=== PATIENT | male | born 1960 | race Caucasian/White ===

== ENCOUNTER 2017-03-27 00:27 | Inpatient (IN) | payer OTHER ==
[~2017-03-27] VITALS: Ht 177.8 cm; Wt 91.6 kg
[2017-03-27] VITALS (12 sets, daily range): BP systolic 115–151; BP diastolic 55–108
[~2017-03-27 00:27] MED LIST: HYDR-385 PO
[2017-03-27] MEDS ORDERED: METOCLOPRAMIDE 10 MG/2 ML SDV ONE (09:03)
[2017-03-27] MEDS ORDERED: ONDANSETRON 4 MG/2 ML VIAL ONE (09:03)
[2017-03-27] MEDS ORDERED: LIDOCAINE MPF 1% 5 ML VIAL ONE (09:03)
[2017-03-27] MEDS ORDERED: PROPOFOL EMUL(*) 10MG/ML 20 ML 20 ML ONE (09:03)
[2017-03-27] MEDS ORDERED: DEXAMETHASONE SOD PHOS 10MG/ML ONE (09:04)
[2017-03-27] MEDS ORDERED: fentaNYL CITR 250 MCG/5 ML AMP ONE (09:10)
[2017-03-27] MEDS ORDERED: ceFAZolin(*) 2GM/D5W 50ML 50 ML IVPB ONE (09:25)
[2017-03-27] MEDS ORDERED: MIDAZOLAM 2 MG/2 ML VIAL IVP ONE (09:25)
[2017-03-27] MEDS ORDERED: NORMOSOL R SOLN(*) 1000 ML BAG 1,000 ML IV PRN (09:25)
[2017-03-27] MEDS ORDERED: FAMOTIDINE 20 MG TAB PO ONE (09:25)
[2017-03-27] MEDS ORDERED: LIDOCAINE/SOD BICARB 8.4% SYR ID ONE (09:25)
[2017-03-27] MEDS ORDERED: LIDO/EPI 1% MDV 1:100,000 20ML INFIL ONE (11:01)
[2017-03-27] MEDS ORDERED: BACITRACIN OINT 15 GM TUBE TP ONE ×2 (11:01→14:05)
[2017-03-27] MEDS ORDERED: LABETALOL HCL 100 MG/20ML VIAL ONE (11:30)
[2017-03-27] MEDS ORDERED: ROCURONIUM BROM 10 MG/ML 10 ML ONE (11:30)
[2017-03-27] MEDS ORDERED: fentaNYL CITR 100 MCG/2 ML AMP ONE ×3 (13:08→15:34)
[2017-03-27] MEDS ORDERED: SUGAMMADEX SOD 200 MG/2 ML SDV ONE (13:29)
[2017-03-27] MEDS ORDERED: LR(*) 1000 ML BAG 1,000 ML IV PRN ×2 (13:58→20:02)
--- NOTE | 2017-03-27 13:58 | Post Operative Note ---
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 direct laryngoscopy with biopsy of left tongue base 2. tonsillectomy 3. selective neck dissection levels II-IV Complications: none Fluids Estimated Blood Loss: 100 ml YARA NICKERSON JR, MD Mar 27, 2017 13:58
[2017-03-27] MEDS ORDERED: ONDANSETRON 4 MG ODT TABDP SL PRN (14:00)
[2017-03-27] MEDS ORDERED: IBUP200C74 PO (16:02)
[2017-03-27] MEDS: MORPHINE 2 MG/ML SYR IVP PRN ×3 (16:31→21:53)
[2017-03-27] MEDS ORDERED: ceFAZolin(*) 1 GM VIAL 1 GM in NS(*) 0.9% 100 ML ADDVANT BAG 100 ML IVPB SCH (17:00)
[2017-03-27] MEDS: ceFAZolin 1 GM VIAL IVP SCH (19:49)
[2017-03-27] MEDS: BACITRACIN OINT 0.9 GM PKT TP SCH (19:49)
[2017-03-27] MEDS: NICOTINE 7 MG/24 HR PATCH TD SCH (20:05)
[2017-03-28 00:04] VITALS: BP 127/77
[2017-03-28] MEDS: MORPHINE 2 MG/ML SYR IVP PRN ×2 (00:06→03:23)
[2017-03-28 03:10] VITALS: BP 115/73
[2017-03-28] MEDS: ceFAZolin 1 GM VIAL IVP SCH ×3 (03:35→20:14)
[2017-03-28 08:07] VITALS: BP 114/74
--- NOTE | 2017-03-28 08:13 | ENT Progress Note ---
Subjective Progress Notes Subjective POD #1 s/p DL, tonsillectomy and left SND. Janene soft diet. Pain controlled. Complains of nasal congestion. 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 Monitor JEREMIAS output. Abx while drain in place. Anticipate discharge home tomorrow. Exam Sepsis Risk: No Definite Risk YARA NICKERSON JR, MD Mar 28, 2017 08:13
[2017-03-28] MEDS: BACITRACIN OINT 0.9 GM PKT TP SCH ×2 (08:17→20:15)
[2017-03-28] MEDS: NICOTINE 7 MG/24 HR PATCH TD SCH (08:18)
[2017-03-28 08:52] VITALS: Ht 177.8 cm; Wt 91.6 kg
[2017-03-28] MEDS: OXYMETAZOLINE SPRAY 15 ML BTL ENA SCH ×2 (10:15→20:15)
[2017-03-28 15:16] VITALS: BP 118/71
[2017-03-28 19:20] VITALS: BP 113/70
--- NOTE | 2017-03-28 21:35 | OPERATIVE REPORT 1 ---
EVENT DATE: March 27, 2017 SURGEON: Tiburcio Marion MD ANESTHESIOLOGIST: Joey Mcnamara MD ANESTHESIA: General endotracheal anesthesia. TECHNICAL SERVICE REPRESENTATIVE: Sachi Barnes PREOPERATIVE DIAGNOSIS Squamous cell carcinoma metastatic to the neck with unknown primary. POSTOPERATIVE DIAGNOSIS Squamous cell carcinoma metastatic to the neck with unknown primary. PROCEDURES PERFORMED 1. Direct laryngoscopy with biopsy of the left base of tongue. 2. Tonsillectomy. 3. Left selective neck dissection levels 2 through 4. INDICATIONS Please refer to the preoperative note. DESCRIPTION OF PROCEDURE The patient was positively identified in the preoperative area. He was accompanied there by his . Risks were again explained, but not limited to bleeding, infection, injury to surrounding nerves and/or vessels including, but limited to the marginal mandibular nerve, accessory nerve, hypoglossal nerve, phrenic nerve, vagus nerve, internal jugular vein, carotid artery, thoracic duct , and those associated with anesthesia. He acknowledged understanding of those risks. He was then brought back to the operative suite and laid supine on the operative table, and anesthesia was administered. Once asleep, the patient was positioned and then prepped and draped in the usual sterile fashion. The patient's maxillary dentures were removed. A gauze was placed over his gingiva. I proceeded with direct laryngoscopy. A Dedo direct laryngoscope was carefully introduced into the patient's oral cavity. This was clear. The patient's base of tongue was examined. This was notable for a small ulcerative lesion on the left base of tongue measuring approximately 5 mm. Mva Reactor Operator Head biopsies were obtained and sent for permanent pathology. The vallecula was clear. The endolarynx was clear. The bilateral piriform sinuses were clear. The patient was then positioned for the tonsillectomy. A McIvor mouth gag was placed in the patient's oral cavity. The red rubber catheter was placed through the right nostril and utilized to suspend the soft palate. The patient was noted to have 2+ tonsils bilaterally. The right tonsil was grasped with a curved Allis forceps and carefully dissected from the lateral pharyngeal wall with Bovie electrocautery. In a similar fashion, the contralateral tonsil was removed. Both tonsils were sent separately for permanent pathology. Hemostasis was obtained with suction and Bovie electrocautery. The patient was then repositioned for the neck dissection. A favorable neck crease was noted in the approximate midline of the neck. A 10 cm incision was planned and marked. Approximately 5 mL of 1% lidocaine with epinephrine was infiltrated. The patient was then prepped and draped in the usual sterile fashion. The aforementioned incision was then made with a 15 blade. I then dissected the underlying subcutaneous tissue with Bovie electrocautery. The platysma muscle was identified and divided with Bovie electrocautery. Subplatysmal flaps were elevated superiorly and inferiorly. I began the neck dissection at the anterior margin of the sternocleidomastoid muscle. The fascia was incised. The muscle was then rotated posteriorly. I continued my dissection superficially and posteriorly in this plane. I then dissected deeply to the floor of the neck using the cervical rootlets as the landmark. I then carefully came across the inferior-most aspect of the neck dissection, clamping and tying to prevent a possible chyle leak. I then rotated the lymph node packet both superiorly and medially. The omohyoid muscle was divided. Superiorly, the accessory nerve was identified and preserved. Superiorly, the inferior margin of the mandible and the posterior belly of the digastric muscle were used for the extent of the dissection. I then freed the lymph node packet anteriorly at the strap musculature. The lymph node packet was carefully freed from the internal jugular vein. The carotid artery and the vagus nerve were identified and preserved. The lymph node packet was then divided into levels 2 , 3, and 4, and sent separately for permanent pathology. The wound was then copiously irrigated with normal saline solution. A Valsalva maneuver was performed. Hemostasis was assumed. A Caesar-Craig drain was placed and secured to the neck with a suture. The platysma was then reapproximated with an interrupted chromic stitch. The skin was then closed in a multilayer fashion. The patient was then turned to Anesthesia for emergence. Estimated blood loss was 100 mL. There were no complications. [facility]
[2017-03-28] MEDS ORDERED: DEXAMETHASONE SOD PHOS 10MG/ML IVP ONE (22:50)
[2017-03-29 00:57] VITALS: BP 114/64
[2017-03-29] MEDS: ceFAZolin 1 GM VIAL IVP SCH ×2 (04:40→11:23)
[2017-03-29 04:53] VITALS: BP 125/81
[2017-03-29 07:28] VITALS: BP 129/66
[2017-03-29 07:36] VITALS: BP 120/69
[2017-03-29] MEDS: OXYMETAZOLINE SPRAY 15 ML BTL ENA SCH (08:09)
[2017-03-29] MEDS: NICOTINE 7 MG/24 HR PATCH TD SCH (08:09)
[2017-03-29] MEDS: BACITRACIN OINT 0.9 GM PKT TP SCH (08:09)
[2017-03-29] MEDS ORDERED: DEXAMETHASONE SOD PHOS 10MG/ML IVP ONE (08:10)
--- NOTE | 2017-03-29 08:28 | ENT Progress Note ---
Subjective Progress Notes Subjective POD #2 s/p tonsillectomy, DL, left SND. Patient complained of throat swelling last night and given IV decadron. Feeling improved this morning. Janene soft diet. 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 Patient is anxious about discharge due to this. Will give another dose of decadron this morning and observe. Anticipate home this afternoon if comfortable. Exam Sepsis Risk: No Definite Risk YARA NICKERSON JR, MD Mar 29, 2017 08:28
[2017-03-29] MEDS ORDERED: CEFU500T10 PO (11:24)
[2017-03-29] MEDS ORDERED: PER PO (11:24)
--- NOTE | 2017-03-29 11:26 | Hospitalist Depart ---
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 Patient tolerating regular diet. Pain controlled. Departure Weight (Pounds): 202 Weight (Ounces): 10.0 Condition: Improved Discharge: Home Discharge Instructions Home Meds Active Scripts Cefuroxime Axetil (CEFUROXIME) 500 Mg Tablet, 500 MG PO BID for 10 Days, #20 TAB Prov:YARA NICKERSON JR, MD 03/29/17 Reported Medications Ibuprofen (IBUPROFEN) 200 Mg Tablet, 2 TAB PO Q6H, TAB 04/05/17 Discontinued Reported Medications Ibuprofen (ADVIL) 200 Mg Capsule, 1 CAP PO TID Y for PAIN, CAPSULE 03/27/17 Hydrocodone Bit/Acetaminophen (HYDROCODON-ACETAMINOPHEN 5-325) 1 Each Tablet, 1 EACH PO PRN Y for PAIN, TAB 03/20/17 Discontinued Scripts Oxycodone Hcl/Acetaminophen (PERCOCET 5-325 MG TABLET) 1 Each Tablet, 1-2 TAB PO Q4-6H Y for PAIN, #10 TAB 0 Refills Prov:VIGNESH SUÁREZ DNP, BUTTON BREAKER-BC 03/31/17 Oxycodone/Acetaminophen (OXYCODONE/ACETAMINOPHEN 5MG/325 MG) 5 Mg/325 Mg Tab, 1- 2 TAB PO Q4H Y for MILD TO MODERATE PAIN for 7 Days, #10 TAB 0 Refills Prov:VIGNESH SUÁREZ DNP, BUTTON BREAKER-BC 03/31/17 Diet: Regular Activity: No Heavy Lifting, No Exertion Special Instructions: Record JEREMIAS output daily. Will call with follow up in 2 days for drain removal. Venous Thromboembolism Antithrombotics Is Pt On Any Antithrombotics?: No YARA NICKERSON JR, MD Mar 29, 2017 11:26
--- NOTE | 2017-03-29 13:13 | Medical Nutrition Therapy ---
Nutrition Anthropometrics Height (Inches): 70.00 Height (Calculated Centimeters: [phone] Weight (Pounds): 202 Weight (Calculated Kilograms): 91.909 BMI Calculated: 28.98 Arthur Nutrition Score: Adequate Arthur Nutrition Risk Score: 17 Dietary Referral Nutrition Risk Factors: Nutrition Risk Comment: Physical Findings Physical Appearance: Overweight BMI 25-29 Skin Appearance Skin Appearance: Edema Edema Location Modifier: Edema Location: Type of Edema: Degree of Edema: Gastrointestinal Symptoms GI Symtoms: Tube Present: Bowel Sounds: Recent Bowel Pattern: Stool Characteristics: Nutritional Diagnosis Nutritional Risk Acuity 2: Head/Neck/GI Cancer Past Medical History: 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 Nutritional Acuity: 2-Moderate Nutrition Diagnosis: Swallowing Difficulties Nutrition Etiology: Physiological Causes Nutrition Problem/Etiology/Sym: Swallowing difficulties r/t tongue biopsy and tonsillectomy AEB soft diet and pt reports of throat swelling. Energy Requirement: 2350 ([address]ome [address] Jeor) Protein Requirement: 92 (1 g/kg) Fluid Requirement: 2200 (25 ml/kg) Diet Type: Diet as Tolerated SADE/REG Nutrition Intervention: Cont diet as ordered, Encourage intake Diet Comment To RSA: PLEASE OFFER SOFT FOODS PLEASE OFFER MILKSHAKES OR SMOOTHIES WITH PROTEIN POWDER Nutrition Monitoring & Eval Nutrition Follow-Up: Good Intake RD Patient Assessment Time: [address] Assessment Type: RD Assessment Patient Nutrition Acuity: 2-Moderate Follow Up Date: Apr 01, 2017 Nutritional Comment: 03/28 Pt admitted for biopsy of left tongue and tonsillectomy. No labs available. Pt has squamous cell carcinoma metastatic to the head and neck. Pt had a 100% of a milkshake with dinner. Will continue to encourage intake and monitor. 03/29 Pt continues on SADE with 100% average intakes. Pt is consuming soft foods such as smoothies with protein powder due to throat swelling post tonsillectomy/tongue biopy. No new labs available. Pt may be discharging this afternoon. Will continue to offer soft foods and monitor intakes. TOBY RUSHING Mar 29, 2017 09:40
[2017-03-31] MEDS ORDERED: PER PO ×2 (15:00→15:02)
[2017-03-31] MEDS ORDERED: OXYC-865 PO (15:03)
[2017-04-05] MEDS ORDERED: IBUP-56 PO (12:22)
== END 2017-03-29 12:40 | disposition home or self-care (01) | DRG 824 ==
LOC: OR 00:27 → MED 15:50
PROVIDERS: ADMIT Otolaryngology; ATTEND Otolaryngology
PROC: 0CBM8ZX Excision of Pharynx, Via Natural or Artificial Opening Endoscopic, Diagnostic (ICD-10-PCS; principal; 2017-03-27 11:24)
PROC: 07B20ZX Excision of Left Neck Lymphatic, Open Approach, Diagnostic (ICD-10-PCS; 2017-03-27 11:24)
PROC: 0CTPXZZ Resection of Tonsils, External Approach (ICD-10-PCS; 2017-03-27 11:24)
DX: C77.0 Secondary and unspecified malignant neoplasm of lymph nodes of head, face and neck (principal); C79.89 Secondary malignant neoplasm of other specified sites; C80.1 Malignant (primary) neoplasm, unspecified; F17.210 Nicotine dependence, cigarettes, uncomplicated
CPT/HCPCS: 88304; 88305; 88344; C9399; J0690; J1100; J2001; J2250; J2270; J2405; J2704; J2765; J3010; J3490; J7120

== ENCOUNTER → 2017-04-13 | Outpatient (CLI) | payer OTHER ==
[2017-03-28 08:52] VITALS: BMI 29.0
[~2017-04-13] MED LIST changes: +CEFU500T10 PO; +DEX4 PO; +IBUP-56 PO; +IBUP200C74 PO; +LIDOCAINE MPF 1% 5 ML VIAL ONE; +LORA-1455 PO; +NS(*) 0.9% 10 ML VIAL 0 ML ONE; +OMEP-218 PO; +ONDA8TAB94 PO; +OXYC-865 PO; +PER PO
== END ==
LOC: RAD 06:59
PROVIDERS: ATTEND Internal Medicine Medical Oncology
DX: C79.89 Secondary malignant neoplasm of other specified sites (principal); C80.1 Malignant (primary) neoplasm, unspecified
CPT/HCPCS: 36569; 76937; C1751; J2001

== ENCOUNTER → 2017-04-24 | Outpatient (CLI) | payer OTHER ==
[2017-03-28 08:52] VITALS: BMI 29.0
[~2017-04-24] MED LIST changes: -LIDOCAINE MPF 1% 5 ML VIAL ONE; -NS(*) 0.9% 10 ML VIAL 0 ML ONE
== END ==
LOC: AUD 13:00
PROVIDERS: ATTEND Nurse Practitioner Family
DX: C79.89 Secondary malignant neoplasm of other specified sites (principal)
CPT/HCPCS: 92552

== ENCOUNTER 2017-06-08 09:24 | Outpatient (RCR) | payer OTHER ==
[2017-03-28 08:52] VITALS: Ht 176.5 cm; Wt 82.5 kg
--- NOTE | 2017-04-05 00:08 | CONSULTATION ---
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 Patient presented with a left neck lymph node which was excised on March 02, 2017. Lymph node measured 4 x 3 cm and demonstrated extracapsular extension stage left tonsil T1 N2a M0, right tonsil T1 N0 M0. HISTORY This is a pleasant 56-year-old gentleman who was referred to me by Dr. Tiburcio Marion for radiation therapy recommendations related to a recently diagnosed head and neck malignancy. The patient will also consult with Dr. Vaughan within the next seven days for Medical Oncology opinion. Patient was seen accompanied by spouse, and records reviewed this morning. The patient states that he had a small nodule in his left neck at the end of January. Within 30 days this seemed to double in size. The patient was seen by primary care and then referred to Dr. Marion for further assessment. Patient underwent initial imaging for a left neck mass with a CT of the neck on February 23, 2017. I reviewed that study with the patient and his spouse. He appeared to have a large mass in the left mid neck measuring 3.2 x 3.4 x 4.7 cm. There was suspicious 8 mm x 13 mm lymph node posteriorly. There appeared to be areas of central necrosis. The lymph node posteriorly was felt to be probably benign, however, the mass anteriorly had several differentials listed by the radiologist. The patient was taken to the OR for an excision of the deep left neck cervical mass by Dr. Tiburcio Marion on March 02, 2017. The mass was submitted to pathology, who confirmed that this was a poorly differentiated squamous cell carcinoma. Extracapsular extension was noted. The submitted specimen measured 4.0 x 3.0 x 2.0 cm. Patient had additional radiographic imaging which included a PET CT scan in [place] on March 21, 2017. There was SUV uptake at the biopsy site which was 2.7 to 3.3. There was moderate activity in the tonsils bilaterally with an SUV max of 6.2 on the right side and 5.5 on the left side. No signs of pulmonary metastatic disease. The patient was taken back to the OR for additional surgery by Dr. Tiburcio Marion on March 27, 2017. Bilateral tonsillectomy was performed and completion level II, level III and level IV neck dissection. Left base of tongue was biopsied which was benign. The tonsils appeared normal grossly, however, microscopically contained invasive poorly differentiated squamous cell carcinoma with areas of necrosis. Ten lymph nodes were examined from the left neck further dissection, which were all negative for carcinoma. Patient is seen approximately eight days remote from the surgery and is scheduled to have his sutures removed tomorrow. Patient states that he was not having any throat pain prior to the surgery or any swallowing difficulties. He denies any referred pain to the jaw or left ear. No recent significant weight loss and energy levels remained fairly normal. The patient does have a smoking history of one half to one pack per day for 35 years. He recently stopped smoking a week ago. 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 MEDICATIONS Cefuroxime 500 mg b.i.d. ALLERGIES PENICILLIN. PAST MEDICAL HISTORY Notable for polymyalgia rheumatica remotely, which cleared with a trial of prednisone and has not recurred since prednisone was discontinued. This was directed out of [place]. PAST SURGICAL HISTORY 1. As listed above. 2. Also had L5 surgery in March of 1989, [place]. 3. Right carpal tunnel surgery, November 04, 2016. 4. Left carpal tunnel surgery, February 16, 2017 in [place]. 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 He is and accompanied by his spouse today, and they have one son aged 23 who lives at home. FAMILY HISTORY Negative for carcinoma. There are history of a sister with rheumatoid arthritis , another sister with juvenile diabetes. COMPREHENSIVE REVIEW OF SYSTEMS Notable for numbness which persists in the left hand related to his carpal tunnel disease. Right hand numbness resolved after three months following surgery. Denies any cardiovascular or respiratory difficulties. No GI complaints. No recent infections. PHYSICAL EXAMINATION GENERAL: A pleasant 56-year-old male of medium build. VITAL SIGNS: Weight 198, height 5 feet 10 inches. BP 127/89, pulse 85, respirations 16, O2 sat 93% on room air. Temperature 99.1. HEENT: Intraoral inspection reveals recent surgical changes over the posterior oropharynx. The tongue was inspected and was unremarkable. The patient wears upper dentures. He has a fixed in place bridge in the lower portion of the jaw which is attached to anchors. NECK: Examination reveals no palpable lymphadenopathy in the right neck. Left neck exam reveals a transverse surgical incision with sutures in place which is healing nicely. There is a second incision 3-4 cm above this from the February surgery which is well healed. No palpable lymphadenopathy. No signs of infection. LUNGS: Clear bilaterally. HEART: Sounds regular. No audible murmur. NEUROLOGIC: Exam is grossly intact. IMPRESSION This is a 56-year-old gentleman who presents with a rapidly enlarging left neck lymph node which contained poorly differentiated squamous cell carcinoma. The patient had mild activity in the tonsils bilaterally on the PET CT scan, although the gross inspection was normal and he was asymptomatic. Patient appropriately underwent bilateral tonsillectomy and was found to have poorly differentiated squamous cell carcinoma in the left and right tonsil, which is fairly unusual concurrently. Additional lymph nodes were removed from level II through level IV which were all negative for carcinoma. Natural history of squamous cell carcinoma of the tonsil was reviewed with the patient and his spouse. These tumors tend to reoccur locally and have a high propensity for lymph node metastasis. Patients are also at risk for pulmonary metastatic disease at a later point. My recommendation at this time would be to proceed with postoperative radiation therapy to start in approximately three weeks. We would proceed with CT simulation later this week to acquire targeting information for treatment planning computer. I will also import the images from the CT scan prior to surgery, and finally request the PET/CT disk from [place], which can also be utilized for radiation targeting and field definition. I will need to target the posterior oropharynx as well as the draining lymphatics of the tonsil in the right neck as well as the left neck. Every attempt will be utilized to minimize radiation to the right posterior parotid with an IMRT treatment technique, and lower the dose as well to the submandibular gland on the right side. On the left side we will need to full radiation therapy doses to the left upper to mid neck with a goal of achieving target doses approximately 66-70 Gy. Progressive field reductions will be performed after 50 Gy at five weeks. Patient will be seen by Dr. Vaughan shortly to discuss systemic chemotherapy options with this patient. Treatments will potentially start on April 17, if the patient has adequate healing at that juncture. I reviewed his radiographic studies with him today, the new pathology report information from last week, and also the potential acute late side effects from treatment. Signed consent has been obtained for treatment going forward. Patient will have sutures removed from his left neck tomorrow at Dr. Marion's office. Appropriate literature was reviewed from up to date regarding squamous cell carcinomas of the oropharynx since he appears to have a high risk stage III carcinoma at diagnosis, presently favoring a combined modality program. Final decisions will be reached, however, after consultation with Dr. Vaughan for his expert opinion. [facility]
[2017-05-29 08:36] VITALS: BP 97/63
[2017-05-29 09:03] LABS: PLATELET COUNT, AUTOMATED 127 K/uL (150-450)
[~2017-06-08] VITALS: Ht 176.5 cm; Wt 82.5 kg
[~2017-06-08 09:24] MED LIST changes: +ALTEPLASE RECOMB 2 MG VIAL IVP PRN; +D5 1/2 NS(*) 1000 ML BAG 1,000 ML IV ONE; +DEXTROSE 5%(*) 100 ML BAG 100 ML IVPB PRN; +FLUC100T35 PO; +FLUC200T52 PO; +NS(*) 0.9% 100 ML BAG 100 ML IVPB PRN; +NS(*) 0.9% 1000 ML BAG 1,000 ML IV PRN; +NS(*) 0.9% 500 ML BAG 500 ML IV PRN; +WATER FOR INJ,STERILE 20 ML IVP PRN
[2017-06-15] MEDS ORDERED: ONDA-2 PO (12:00)
--- NOTE | 2017-06-21 10:43 | TOBIN CONSULT ---
EVENT DATE: June 20, 2017 DIAGNOSIS Squamous cell carcinoma of the right and left tonsil. Tumor is poorly differentiated. Patient presenting with large lymph node mass in the left neck , requiring excision on March 02, 2017. Status post surgical tonsillectomy bilaterally, revealing a poorly differentiated invasive of squamous cell carcinoma on March 27, 2017. Clinical stage I left tonsil T1 N2a M0, right tonsil T1 N0 M0. TREATMENT PLAN Postoperative external beam radiation therapy with IMRT with concurrent weekly cisplatin. TREATMENT DETAILS Radiation therapy started April 18, 2017. It completed June 08, 2017. DOSE AND TECHNIQUE The patient received a combined dose of 6660 cGy, 37 daily fractions. Treatment was delivered in three phases. Phase one covered the primary posterior oropharynx and regional lymph nodes bilaterally to 5040 cGy in 28 fractions. First boost covered the posterior oropharynx and left neck for an additional 1080 cGy in six fractions. Last boost covered the site of the lymph node resection, delivering another 540 cGy in three fractions at 180 cGy per fraction. The patient was able to complete a total of five weekly IV infusions of cisplatin on the direction of Dr. Vaughan. TOLERANCE As expected, the patient developed a [id number] mucositis reaction in the posterior oropharynx. This was medicated with a combination of Fentanyl patch and hydrocodone elixir effectively. The patient was hydrated in the Oncology Department for the last several weeks of his treatment course effectively. He was able to maintain a soft diet and was able to complete the course without a feeding tube. He was noted to have hematologic suppression, which was followed by Dr. Vaughan and myself and managed appropriately. DISPOSITION The patient should see significant resolution of the mucositis reaction within a period of three to six weeks. He will have follow-up blood work in two weeks , and be seen by Medical Oncology. I would like to see the patient at approximately week six to eight. The patient will monitored by multiple physicians going forward. I would tentatively request followup baseline PET/CT scan in 12-16 weeks to allow resolution of the acute treatment effects. Patient has done exceptionally well considering that he had to undergo treatment for bilateral squamous cell carcinoma of the tonsil. He presented with a fairly aggressive squamous cell carcinoma to the left neck and will need close surveillance going forward. I will refer him back to Dr. Marion to assist with the oncology surveillance in approximately eight to 12 weeks to allow resolution of acute treatment effects. The patient has a follow-up appointment with Dr. Vaughan in approximately three weeks as well. At his next clinical visit I will obtain a CBC, CMP and TSH. Patient was instructed to contact us if he needs to be seen sooner. I would expect the xerostomia to steadily improve over the next 12 months, and taste to return gradually over two to six months. Thank you for the initial referral. Hopefully the tri-modality therapy will be effective in preventing subsequent recurrence. ADAMS
== END 2017-07-02 ==
LOC: RAON 09:24
PROVIDERS: ATTEND Radiology Radiation Oncology
DX: Z51.0 Encounter for antineoplastic radiation therapy (principal); C09.8 Malignant neoplasm of overlapping sites of tonsil; C79.89 Secondary malignant neoplasm of other specified sites; F17.210 Nicotine dependence, cigarettes, uncomplicated
CPT/HCPCS: 36592; 77280; 77290; 77300; 77301; 77334; 77336; 77338; 77386; 85025; 99202; J7030; 82040; 82247; 82310; 82374; 82435; 82565; 82947; 84075; 84132; 84155; 84295; 84450; 84460; 84520

== ENCOUNTER 2017-07-07 09:59 | Outpatient (RCR) | payer OTHER ==
[2017-03-28 08:52] VITALS: Ht 176.5 cm; Wt 83.0 kg
[2017-04-12 12:36] VITALS: BP 138/85
--- NOTE | 2017-04-12 18:58 | ONCOLOGY CONSULTATION ---
EVENT DATE: April 12, 2017 REFERRING PROVIDER Avelino Adams MD REASON FOR CONSULTATION Tonsillar squamous cell carcinoma. CHIEF COMPLAINT Left neck numbness at site of incision. HISTORY OF PRESENT ILLNESS Chance is a very pleasant 56-year-old gentleman who is here with his today. He has been referred to my clinic by Dr. 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 To review , the patient had initially presented with a left neck mass in January, and per the record, it had doubled in size within a short period of time. He was seen by his primary care provider, and then he was referred to Dr. Marion in ENT. The patient underwent a CT scan of the neck on February 23. This revealed a partially cystic/necrotic mass in the left neck at the level of the hyoid bone, abutting the posterior surface of the left submandibular gland. The mass displaced the internal jugular vein and the internal/external carotid. The mass itself measured 3.2 x 3.4 x 4.7 cm. There were additional smaller lymph nodes elsewhere in the mid neck. The patient then underwent an excisional biopsy of the left neck mass on March 02. 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 He then went for a CT PET scan on March 21. This revealed evidence of his prior surgical biopsy, as well as warm activity along the surgical approach with a maximum SUV of 3.3. There is moderately high activity in the tonsils extending rostrally to the tongue base, and a tonsillar/ peritonsillar malignancy could not be excluded. There was a left pulmonary micronodule, but no evidence of distant glucose-avid metastatic disease. The patient returned to the operating room on March 27 where a bilateral tonsillectomy as well as completion level II, III, and IV neck dissection took place. Biopsies were taken of the left base of tongue, and these were benign. Both the left and right tonsils contained invasive poorly differentiated squamous cell carcinoma. The patient did quite well with his surgery. Today, he reports that he has no significant pain. He has not required any pain medication for the past few days. He does have some numbness and slight tightness around the incision. He reports no problem swallowing. He has had no mouth sores. He denies shortness of breath, chest pain, or cough. His appetite has otherwise been good, and his weight has been stable. He does have a smoking history, but he recently quit. Of note, his tumor is positive for HPV. REVIEW OF SYSTEMS Otherwise negative, and all systems are reviewed. MEDICATIONS Ibuprofen p.r.n. ALLERGIES PENICILLIN. PAST MEDICAL HISTORY Reported history of polymyalgia rheumatica which has not been apparent since an initial treatment with prednisone. PAST SURGICAL HISTORY 1. History of lumbar spine surgery, 1989. 2. History of right carpal tunnel surgery, November 04, 2016. 3. Left carpal tunnel surgery, February 16, 2017. SOCIAL HISTORY The patient is a former smoker, as above. There is no history of alcohol abuse or illicit drug use. 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 He is with one son. FAMILY HISTORY There is no known history of malignancy. VITAL SIGNS Temperature is 97.0, blood pressure 138/85, heart rate is 92, respirations 16, oxygen saturation is 92% on room air, weight is 91.0 kg. PHYSICAL EXAMINATION GENERAL: Patient is alert and oriented times three in no apparent distress sitting in the exam room chair. HEENT: Exam reveals anicteric sclerae. NECK: Exam reveals a well-healed incision over the left neck. NEUROLOGIC: Exam is grossly nonfocal and his gait is normal. EXTREMITIES: Exam reveals no edema, clubbing or cyanosis. There is no joint deformity. He does have old scars from carpal tunnel surgery. SKIN: Exam reveals no concerning rash or lesion. LABORATORY Studies are reviewed per the [facility] record. IMAGING AND PATHOLOGY Please see history of present illness. ASSESSMENT AND PLAN 1. 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 I had a good visit with Chance and his today. Symptomatically he is doing quite well. We spent time reviewing his oncologic history, which is noted above. He has met with Dr. Adams in Radiology Oncology, and much of the information that we covered today was somewhat of a review. We spent time discussing the nature of his squamous cell carcinoma, and the importance of the left neck lymph node metastasis in terms of staging and decision making for adjuvant therapy. I would certainly agree with Dr. Adams that postoperative radiation is indicated. We spent time today discussing the merits of the addition of weekly cisplatin to his planned radiation course. We discussed the synergistic effect of combined modality therapy. We spent time discussing cisplatin, the weekly schedule, and common risks and toxicities associated with it. The patient's performance status is excellent, and he recently quit smoking. He does have some preexisting numbness in the left hand related to carpal tunnel syndrome, but he has had bilateral carpal tunnel surgeries. He has occasional mild tinnitus, but this is not a persistent or worsening problem. His kidney function is excellent. We discussed the possibility of nausea, and the need for him to have antiemetic medications at home. I do understand that he is planning to begin radiation therapy next week. The patient is quite interested in receiving combined modality therapy, so we will put orders forth for him to receive cisplatin with his radiation. Given the HPV + nature of his SCC, we will likely move forward with weekly cisplatin at 40 mg/ m2, as opposed to high-dose cisplatin on Days 1, 22, and 43. I would like to discuss this further with Dr. Adams, however. We will work for this to begin as soon as possible so that his radiation therapy can start on time. He will be followed closely here in this clinic as he initiates his treatment. I have recommended that he have weekly Medical Oncology evaluation in addition to the busy schedule that he will be keeping with Radiation Oncology. 2. Smoking. The patient has stopped smoking, but we did discuss methods and strategies for him to continue to be able to avoid cigarettes. Indeed, most patients find it difficult if not impossible to smoke while undergoing chemoradiation. I do think it would be fine if he wants to consider replacement products such as patches as he moves forward with treatment. He understands the importance of never smoking again. Thank you very much, Dr. Adams, for allowing me to take part in the care of this delightful patient. Please do not hesitate to call with questions or concerns. We will get the patient scheduled for chemotherapy education as well as PICC line placement as soon as possible. I spent a total of 60 minutes of time face to face with the patient and his today. Fifty-five minutes of this time was spent in direct counseling and coordination of care. ADAMS
--- NOTE | 2017-04-13 17:03 | RADIOLOGY IMAGING REPORT ---
FACILITY: [facility] PATIENT NAME: Sybil Gilliam : 1960 MR: [id number] V: [id number] EXAM DATE: ORDERING PHYSICIAN: ROGER PATTERSON TECHNOLOGIST: Location: [facility] Patient: Sybil Gilliam : 1960 Visit/Account:[id number] Date of Sevice: 04/13/2017 Exam type: PICC LINE PLACEMENT, PICC LINE INSERTION History: Need for IV chemotherapy Comparison: None. Findings: Informed consent was obtained. The patient's left arm was prepped and draped in usual sterile fashio n. Local anesthesia was accomplished with 1% lidocaine. Under sonographic guidance and fluoroscopic guidance a 40 cm long trimmed 4 Bahraini single lumen power PICC was inserted via the patent left basi lic vein with the distal tip resting in superior vena cava. The PICC line was flushed with five mill ers of saline flush. Proximal portion PICC line was adhered to the patient's arm the sterile dressin g. The sonographic images were saved to PACS. The procedure was accomplished without apparent corti cation. The fluoroscopy dose area product was 94.81 micro-Kwong per meter squared IMPRESSION: 1. Successful placement of a 40 cm long trimmed 4 Bahraini single lumen power PICC inserted via the pa tent left basilic vein with the distal tip resting in superior vena cava Report Dictated By: Quita Ramsey MD at 04/13/2017 4:56 PM Report E-Signed By: Quita Ramsey MD at 04/13/2017 4:58 PM WSN:[email or web address]
--- NOTE | 2017-04-13 17:03 | RADIOLOGY IMAGING REPORT ---
FACILITY: [facility] [place] PATIENT NAME: Sybil Gilliam : 1960 MR: [id number] V: [id number] EXAM DATE: ORDERING PHYSICIAN: ROGER PATTERSON TECHNOLOGIST: Location: [facility] Patient: Sybil Gilliam : 1960 Visit/Account:[id number] Date of Sevice: 04/13/2017 Exam type: PICC LINE PLACEMENT, PICC LINE INSERTION History: Need for IV chemotherapy Comparison: None. Findings: Informed consent was obtained. The patient's left arm was prepped and draped in usual sterile fashio n. Local anesthesia was accomplished with 1% lidocaine. Under sonographic guidance and fluoroscopic guidance a 40 cm long trimmed 4 Estonian single lumen power PICC was inserted via the patent left basi lic vein with the distal tip resting in superior vena cava. The PICC line was flushed with five mill ers of saline flush. Proximal portion PICC line was adhered to the patient's arm the sterile dressin g. The sonographic images were saved to PACS. The procedure was accomplished without apparent corti cation. The fluoroscopy dose area product was 94.81 micro-Kwong per meter squared IMPRESSION: 1. Successful placement of a 40 cm long trimmed 4 Estonian single lumen power PICC inserted via the pa tent left basilic vein with the distal tip resting in superior vena cava Report Dictated By: Quita Ramsey MD at 04/13/2017 4:56 PM Report E-Signed By: Quita Ramsey MD at 04/13/2017 4:58 PM WSN:ABILIO
[2017-04-18 08:43] VITALS: BP 137/85
[2017-04-18] MEDS: NS(*) 0.9% 1000 ML BAG 1,000 ML IV PRN (08:54)
[2017-04-18] MEDS: NS(*) 0.9% 500 ML BAG 500 ML IV PRN (10:31)
[2017-04-18] MEDS: PALONOSETRON 0.25 MG/5 ML VIAL IVP PRN (10:31)
[2017-04-18] MEDS: DEXAMETHASONE SOD(*) 10MG/ML 10 MG in NS(*) 0.9% 50 ML BAG 50 ML IVPB PRN (10:31)
--- NOTE | 2017-04-18 10:39 | ONC Progress Note - NP.Halsey ---
Patient History Date of Service Apr 18, 2017 Reason For Visit/HPI Patient is seen in the clinic today with his for education prior to starting chemotherapy for his tonsillar squamous cell carcinoma. The education team to include psychologist social, physical therapy and myself reviewed education with patient today. Written material was given to patient and spouse for further review. Consent was signed. Radiation education was also completed today and consent was previously signed by the radiation oncologist. Patient reports that he has not had a flu vaccination or pneumonia vaccination at this time. He currently has a mild sore throat and reports that he has a few pain medications left at home but has not needed to use them recently. He is able to eat and drink almost all foods without difficulty at this time. No shortness of breath, cough or congestion, diarrhea or constipation. Patient has a PICC line in his left arm that was placed last and will have a dressing change completed today. He should've had a dressing change 24 hours post-insertion. 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 Patient presented with a left neck mass in January, and it doubled in size within a short period of time. He was seen by his primary care provider, and then he was referred to Dr. Marion in ENT. The patient underwent a CT scan of the neck on February 23. This revealed a partially cystic/necrotic mass in the left neck at the level of the hyoid bone, abutting the posterior surface of the left submandibular gland. The mass displaced the internal jugular vein and the internal/external carotid. The mass itself measured 3.2 x 3.4 x 4.7 cm. There were additional smaller lymph nodes elsewhere in the mid neck. The patient then underwent an excisional biopsy of the left neck mass on March 02. 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 He then went for a CT PET scan on March 21. This revealed evidence of his prior surgical biopsy, as well as warm activity along the surgical approach with a maximum SUV of 3.3. There is moderately high activity in the tonsils extending rostrally to the tongue base, and a tonsillar/peritonsillar malignancy could not be excluded. There was a left pulmonary micronodule, but no evidence of distant glucose-avid metastatic disease. The patient returned to the operating room on March 27 where a bilateral tonsillectomy as well as completion level II, III, and IV neck dissection took place. Biopsies were taken of the left base of tongue, and these were benign. Both the left and right tonsils contained invasive poorly differentiated squamous cell carcinoma. Of note, his tumor is positive for HPV. Patient will on 04/18/2017 and concurrent radiation therapy 7 weeks. Medical History Family History: FH: diabetes mellitus BROTHER OR SISTER FH: rheumatoid arthritis BROTHER OR SISTER Psychosocial History Social History The patient is a former smoker, he quit with the diagnosis. There is no history of alcohol abuse or illicit drug use. 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 He is with one son. Smoking History: Yes Smoking Status: Former Smoker Medications and Allergies Active Scripts Dexamethasone 4 Mg Tab (DEXAMETHASONE 4 MG TAB) 4 Mg Tab, 4 MG PO DAILY for 3 Days, #42 TAB take 8mgin the morning on days 2-4 post weekly chemotherapy Prov:[facility] ONC 04/18/17 Omeprazole Magnesium (PRILOSEC OTC) 20 Mg Tablet.dr, 1 TAB PO QDAY for Nausea, # 30 TAB take on days of dexamethasone, 1-4 weeekly with chemotherapy Prov:[facility], ONC 04/18/17 Lorazepam (ATIVAN) 0.5 Mg Tablet, 0.5 MG PO Q4-6H Y for nausea for 30 Days, #30 TAB 1 Refill Prov:[facility], ONC 04/18/17 Ondansetron (ZOFRAN ODT) 8 Mg Tab.rapdis, 8 MG PO Q8H, #30 TAB 2 Refills Prov:[facility], ONC 04/18/17 Reported Medications Ibuprofen (IBUPROFEN) 200 Mg Tablet, 2 TAB PO Q6H, TAB 04/05/17 Discontinued Scripts Cefuroxime Axetil (CEFUROXIME) 500 Mg Tablet, 500 MG PO BID for 10 Days, #20 TAB Prov:YARA MARION JR, MD 03/29/17 Allergies: Coded Allergies: Penicillins (Verified Allergy, Intermediate, itching, 03/27/17) Review of System/Physical Exam Review of Systems All Systems Reviewed/Normal: Yes, Except as Noted HEENT: Sore Throat Hematologic: Positive for Fatigue Musculoskeletal: Positive for Muscle Pain (neck and shoulder decreased ROM, left hand s/p carpul surgery) Neurologic: Numbness of Hands Physical Exam Vital Signs Temperature: 98.0 Pulse: 96 BP Systolic: 137 BP Diastolic: 85 Respiratory Rate: 16 O2 SAT: 90 O2 Delivery: Height (inches) 69.50 Weight lb: 202 Weight oz: 10.0 Weight Kg (Spenser): Pain: 2 ECOG Score: 0 General: Stable, Well Developed, Well Nourished, Not In Acute Distress Extremities: Other (PICC line in the left upper arm infusing normal saline via pump) Psychiatric: Mood appears normal, Affect appears normal, Other (passes with him today) Skin: Other Chemo Education Chemotherapy Education: Patient is seen today for education regarding chemotherapy with cisplatin and concurrent radiation therapy for his squamous cell carcinoma of the tonsils bilaterally The treatment schedule and associated appointments were discussed and reviewed. A print out will be given to the patient. The intent for treatment is attentive. Consent for treatment was completed prior to receiving treatment. Mechanism of action and associated side effects of cisplatin and premedications were discussed. The patient is at increased risk for infection related to bone marrow suppression with chemotherapy. Signs and symptoms of infection were reviewed with recommendation of calling the clinic if fever, chills or a temperature of 100.5 or greater is experienced. Regular monitoring of blood work will be completed. The patient is at increased risk of nausea and vomiting related to chemotherapy. Home antiemetics were reviewed with a schedule of when to take them. Script (s) for Ativan, Zofran, Prilosec and dexamethasone were reviewed in detail and sent to [facility]. Increased bowel movements or diarrhea may occur. The use of Imodium was reviewed and encouraged to have on hand. Dehydration from decreased intake, nausea or diarrhea could also occur. Side effects of dehydration were reviewed and hydration will be given as needed. Oral mouth sores and dry mouth side effect management was reviewed with patient today. Patient is encouraged to complete good oral hygiene, use aloe vera juice prior to radiation therapy, use baking soda salt water rinse frequently during the day, and use hard candy or sips of water frequently to prevent dry oral secretions. Patient will be monitored closely and as oral mucositis develops prescription medications will be completed. Review of oral candidiasis and symptoms to look for was also completed. Self-care strategies to minimize any symptoms from treatment were taught and written material was given for further review at home. The strategies included: dietary modifications for nausea, diarrhea, fatigue and/ or mouth sores, exercise and resting for fatigue, hydration for dehydration, and skin care for dry skin reactions. In addition, safety measures for IV chemotherapy to prevent teratogenic side effects to others was reviewed in detail to include good hand washing, double flushing, and what to do during sexual intercourse. Patient and spouse both verbalized understanding and will review the written material again in detail. Radiation side effects to include fatigue, skin management, skin reaction such as a moist desquamation in the treatment field, oral mucositis and sore throat were all reviewed as well. Written information regarding skin care using a heavy moisturizer cream and avoiding 2 hours prior to radiation therapy was recommended. Patient will be hydrated as needed for dehydration secondary to sore throat. Pain medications will be filled as needed to treat pain as it develops. A PEG tube placement was reviewed and could be completed if patient is unable to complete nutritional status. Diagnostic Studies Diagnostic Studies Laboratory Laboratory Tests 04/18/17 08:50 Laboratory Tests 04/18/17 08:50: White Blood Count 7.8, Hemoglobin 14.5, Hematocrit 41.4, Platelet Count 229, Neutrophils (%) (Auto) 65.6, Lymphocytes (%) (Auto) 24.1, Neutrophils # (Auto) 5.1, Lymphocytes # (Auto) 1.9, Sodium Level 139, Potassium Level 4.1, Chloride Level 105, Carbon Dioxide Level 24, Blood Urea Nitrogen 13, Creatinine 0.90, Glomerular Filtration Rate Calc > 60.0, Random Glucose 119, Calcium Level 8.9, Phosphorus Level 2.8, Magnesium Level 2.1, Total Bilirubin 0.7, Aspartate Amino Transf (AST/SGOT) 30, Alanine Aminotransferase (ALT/SGPT) 36, Alkaline Phosphatase 84, Total Protein 7.1, Albumin 3.9 Assessment and Plan Assessment & Plan 1. 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 Education completed today regarding concurrent cisplatin weekly with daily radiation therapy. Patient will start cycle 1 today. [facility] to include Zofran, Ativan, and dexamethasone. Patient will use aloe vera juice prior daily radiation therapy to help prevent oral mucositis. Consent was signed after reviewing side effects. Patient and spouse verbalized understanding of treatment. Patient has a PICC line which will be maintained. Patient was encouraged to scrap picker a sleeve from the [employer] for showering. Patient will follow weekly with CBC, CMP, magnesium and phosphorus level. TSH was added today for baseline. I personally spent a total of 45 minutes. Of that 40 minutes was counseling/ coordination of patient's care. See my note above for details. Copies to: YARA MARION JR, MD, NANCY J TISSUE SPECIALIST-BC, ONC Apr 18, 2017 10:39
[2017-04-18] MEDS: FOSAPREPITANT DIM 150 MG/5 ML 150 MG in NS(*) 0.9% 250 ML BAG 245 ML IVPB PRN (11:01)
[2017-04-18] MEDS: [UNRECOGNIZED DRUG - OTHER] IV PRN (12:53)
[2017-04-18] MEDS: MAGNESIUM SU IV PRN (12:53)
[2017-04-18] MEDS: KCL IV PRN (12:53)
[2017-04-18 14:59] VITALS: BP 137/85
[2017-04-25 08:27] VITALS: BP 145/80
[2017-04-25] MEDS: NS(*) 0.9% 1000 ML BAG 1,000 ML IV PRN (09:04)
[2017-04-25] MEDS: PALONOSETRON 0.25 MG/5 ML VIAL IVP PRN (09:05)
[2017-04-25] MEDS: DEXAMETHASONE SOD(*) 10MG/ML 10 MG in NS(*) 0.9% 50 ML BAG 50 ML IVPB PRN (09:06)
[2017-04-25] MEDS: FOSAPREPITANT DIM 150 MG/5 ML 150 MG in NS(*) 0.9% 250 ML BAG 245 ML IVPB PRN (09:52)
--- NOTE | 2017-04-25 09:57 | ONC Progress Note - NP.Halsey ---
Patient History Date of Service Apr 25, 2017 Reason For Visit/HPI Patient is seen in the clinic today with his for cycle 2 of weekly cisplatin. Patient is scheduled to receive 7 weekly doses. He is currently on concurrent radiation therapy for his tonsillar squamous cell carcinoma. Patient reports that he tolerated the 1st cycle without difficulty. He denied any nausea or vomiting, no bowel changes and no urinary changes. Patient is experiencing a loss of taste buds and tightness in the neck postradiation therapy. He is beginning to develop a mild skin reaction. He is currently using aloe vera juice 3 times a day for oral mucositis prevention and a heavy moisturizer twice a day over the skin in the treatment field. 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 Patient presented with a left neck mass in January, and it doubled in size within a short period of time. He was seen by his primary care provider, and then he was referred to Dr. Nickerson in ENT. The patient underwent a CT scan of the neck on February 23. This revealed a partially cystic/necrotic mass in the left neck at the level of the hyoid bone, abutting the posterior surface of the left submandibular gland. The mass displaced the internal jugular vein and the internal/external carotid. The mass itself measured 3.2 x 3.4 x 4.7 cm. There were additional smaller lymph nodes elsewhere in the mid neck. The patient then underwent an excisional biopsy of the left neck mass on March 02. 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 He then went for a CT PET scan on March 21. This revealed evidence of his prior surgical biopsy, as well as warm activity along the surgical approach with a maximum SUV of 3.3. There is moderately high activity in the tonsils extending rostrally to the tongue base, and a tonsillar/peritonsillar malignancy could not be excluded. There was a left pulmonary micronodule, but no evidence of distant glucose-avid metastatic disease. The patient returned to the operating room on March 27 where a bilateral tonsillectomy as well as completion level II, III, and IV neck dissection took place. Biopsies were taken of the left base of tongue, and these were benign. Both the left and right tonsils contained invasive poorly differentiated squamous cell carcinoma. Of note, his tumor is positive for HPV. Patient will on 04/18/2017 and concurrent radiation therapy 7 weeks. Medical History Family History: FH: diabetes mellitus BROTHER OR SISTER FH: rheumatoid arthritis BROTHER OR SISTER Psychosocial History Social History The patient is a former smoker, he quit with the diagnosis. There is no history of alcohol abuse or illicit drug use. 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 He is with one son. Smoking History: Yes Smoking Status: Former Smoker When Quit Tobacco?: QUIT 03/27/17; SMOKED 1/3 PPD X 30 YEARS Medications and Allergies Active Scripts Dexamethasone 4 Mg Tab (DEXAMETHASONE 4 MG TAB) 4 Mg Tab, 4 MG PO DAILY for 3 Days, #42 TAB take 8mgin the morning on days 2-4 post weekly chemotherapy Prov:ASPEN HATFIELD [facility]-, ONC 04/18/17 Omeprazole Magnesium (PRILOSEC OTC) 20 Mg Tablet.dr, 1 TAB PO QDAY for Nausea, # 30 TAB take on days of dexamethasone, 1-4 weeekly with chemotherapy Prov:ASPEN HATFIELD [facility]-, ONC 04/18/17 Lorazepam (ATIVAN) 0.5 Mg Tablet, 0.5 MG PO Q4-6H Y for nausea for 30 Days, #30 TAB 1 Refill Prov:ASPEN HATFIELD [facility]-, ONC 04/18/17 Ondansetron (ZOFRAN ODT) 8 Mg Tab.rapdis, 8 MG PO Q8H, #30 TAB 2 Refills Prov:ASPEN HATFIELD [facility]-, ONC 04/18/17 Reported Medications Ibuprofen (IBUPROFEN) 200 Mg Tablet, 2 TAB PO Q6H, TAB 04/05/17 Discontinued Scripts Cefuroxime Axetil (CEFUROXIME) 500 Mg Tablet, 500 MG PO BID for 10 Days, #20 TAB Prov:YARA NICKERSON JR, MD 03/29/17 Allergies: Coded Allergies: Penicillins (Verified Allergy, Intermediate, itching, 03/27/17) Review of System/Physical Exam Review of Systems All Systems Reviewed/Normal: Yes, Except as Noted HEENT: Sore Throat Gastrointestinal: Swallowing Difficulties (tightness in the throat occasionally but able to continue to eat all foods at this time) Hematologic: Positive for Fatigue (mild fatigue) Physical Exam Vital Signs Temperature: 99.1 Pulse: 87 BP Systolic: 145 BP Diastolic: 80 Respiratory Rate: 16 O2 SAT: 96 O2 Delivery: Height (inches) 69.50 Weight lb: 202 Weight oz: 10.0 Weight Kg (Spenser): Pain: 2 ECOG Score: 0 General: Stable, Well Developed, Well Nourished, Not In Acute Distress HEENT: No Trauma, No Conjunctivitis, No Icterus, No Mucositis, No Oral Thrush Neck: Supple Lungs: Clear to Auscultation, Percussed Bilaterally Heart: Regular Rate, Regular Rhythm, No Gallops, No Murmurs Abdomen: Soft and Nontender, No Hepatosplenomegaly, No Masses Extremities: No Cyanosis, No Clubbing, No Edema Lymphadenopathy: No Cervical Psychiatric: Mood appears normal, Affect appears normal Skin: No Skin Rashes, No Bruising, No Purpura, Mild Erythema (bilateral neck), Other Diagnostic Studies Diagnostic Studies Laboratory Laboratory Tests 04/25/17 08:30 Laboratory Tests 04/18/17 08:50: Thyroid Stimulating Hormone (TSH) 1.82 04/25/17 08:30: White Blood Count 8.1, Hemoglobin 15.2, Hematocrit 43.5, Platelet Count 210, Neutrophils (%) (Auto) 68.0, Lymphocytes (%) (Auto) 19.7, Neutrophils # (Auto) 5.5, Lymphocytes # (Auto) 1.6, Sodium Level 135, Potassium Level 4.5, Chloride Level 102, Carbon Dioxide Level 22, Blood Urea Nitrogen 17, Creatinine 0.90, Glomerular Filtration Rate Calc > 60.0, Random Glucose 90, Calcium Level 9.0, Phosphorus Level 3.6, Magnesium Level 1.9, Total Bilirubin 0.5, Aspartate Amino Transf (AST/SGOT) 22, Alanine Aminotransferase (ALT/SGPT) 39, Alkaline Phosphatase 79, Total Protein 7.1, Albumin 3.9 Assessment and Plan Assessment & Plan 1. 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 Patient started weekly cisplatin on 04/18/2017 and daily radiation therapy Monday through Monday. Patient tolerated cycle 1 of cisplatin without difficulty other than taste bud changes. He is having some heartburn and has a prescription for Prilosec which he will start taking on a daily basis. Patient has a PICC line which will be maintained. . Patient will follow weekly with CBC, CMP, magnesium and phosphorus level. TSH was added with last lab draw and is within normal limits at 1.72. Patient will be followed on a weekly basis and labs monitored. 2. Skin reaction related to radiation therapy. Patient will continue heavy moisturizer cream. Patient will follow with radiation oncologist on a weekly basis throughout treatment and more frequent as needed. I personally spent a total of 20 minutes. Of that 20 minutes was counseling/ coordination of patient's care. See my note above for details. Copies to: JUAN HANKS NANCY J FNP-BC, ONC Apr 25, 2017 09:57
[2017-04-25] MEDS: [UNRECOGNIZED DRUG - OTHER] IV PRN (11:39)
[2017-04-25] MEDS: KCL IV PRN (11:39)
[2017-04-25] MEDS: MAGNESIUM SU IV PRN (11:39)
--- NOTE | 2017-04-28 11:21 | Medical Nutrition Therapy ---
Nutrition Anthropometrics Height (Inches): 69.50 Height (Calculated Centimeters: 176.5300 Weight (Pounds): 202 BMI Calculated: 28.98 Arthur Nutrition Score: Arthur Nutrition Risk Score: Dietary Referral Nutrition Risk Factors: Nutrition Risk Comment: Nutritional Education Nutrition Education Topic: Other (head/neck Ca) Learning Readiness: Interested Teaching Methods: Discussion, Handout Response to Teaching: Verbalize understanding Teaching Recipient: Patient Nutrition Counseling: Pt receiving chemo and RO for hea/nceck Ca. Pt stated at this time was not having any nutrtional issues at this time. Discussed swallowing issues that often develop with head/neck RO in particular dry mouth, lower salavia and trouble swalloiwng. Encouraged soft, moist foods. Avoid dry crackers, dry meats. Add fat and sauces to foods. Provided handouts on swallowing issues and dry mouth. Recommmend pt contact RD if further nutritional issues develop. Nutrition Monitoring & Eval RD Patient Assessment Time: [address] Assessment Type: RD Education Nutritional Comment: Provided 20 minutes MNT for nutrtion with Ca tx. Copies To Copies to: ASPEN HATFIELD [employer]TER-BC, ONC; ROGER PATTERSON MD, BETH Apr 28, 2017 11:21
[2017-05-02 08:33] VITALS: BP 135/86
[2017-05-02 08:41] LABS: PLATELET COUNT, AUTOMATED 175 K/uL (150-450)
--- NOTE | 2017-05-02 09:09 | ONC Progress Note - NP.Halsey ---
Patient History Date of Service May 02, 2017 Reason For Visit/HPI Patient is seen in the clinic today with his for cycle 3 of weekly cisplatin. Patient is scheduled to receive 7 weekly doses. He is currently on concurrent radiation therapy for his tonsillar squamous cell carcinoma. Patient reports that he tolerated the cycle 1 and 2 without difficulty. He denied any nausea or vomiting, no fever or chills and no urinary changes. He had some constipation with cycle 2 and used MOM with good results. Patient reports a burning sensation across to his tongue and has a white coating. Patient reports increased difficulty with swallowing due to pain bilaterally. He has a mild skin reaction outside in the treatment field. He is using moisturizer cream on this area. In addition patient is using aloe vera juice and baking soda and salt water rinse several times a day. He is practicing good oral hygiene. He is finding that most foods are more difficult to eat due to pain with swallowing and with taste changes. Patient is currently using ibuprofen or Tylenol for pain management. He has used hydrocodone after his tonsillectomy and reports good toleration. He verbalizes understanding of constipation with pain medications. Oncology History Chance is a very pleasant 56-year-old gentleman whowas referred by Dr. 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 Patient presented with a left neck mass in January, and it doubled in size within a short period of time. He was seen by his primary care provider, and then he was referred to Dr. Marion in ENT. The patient underwent a CT scan of the neck on February 23. This revealed a partially cystic/necrotic mass in the left neck at the level of the hyoid bone, abutting the posterior surface of the left submandibular gland. The mass displaced the internal jugular vein and the internal/external carotid. The mass itself measured 3.2 x 3.4 x 4.7 cm. There were additional smaller lymph nodes elsewhere in the mid neck. The patient then underwent an excisional biopsy of the left neck mass on March 02. 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 He then went for a CT PET scan on March 21. This revealed evidence of his prior surgical biopsy, as well as warm activity along the surgical approach with a maximum SUV of 3.3. There is moderately high activity in the tonsils extending rostrally to the tongue base, and a tonsillar/peritonsillar malignancy could not be excluded. There was a left pulmonary micronodule, but no evidence of distant glucose-avid metastatic disease. The patient returned to the operating room on March 27 where a bilateral tonsillectomy as well as completion level II, III, and IV neck dissection took place. Biopsies were taken of the left base of tongue, and these were benign. Both the left and right tonsils contained invasive poorly differentiated squamous cell carcinoma. Of note, his tumor is positive for HPV. Patient started treatment on 04/18/2017 with Cisplatin weekly and concurrent radiation therapy 7 weeks. Medical History Family History: FH: diabetes mellitus BROTHER OR SISTER FH: rheumatoid arthritis BROTHER OR SISTER Psychosocial History Social History The patient is a former smoker, he quit with the diagnosis. There is no history of alcohol abuse or illicit drug use. 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 He is with one son. Smoking History: Yes Smoking Status: Former Smoker When Quit Tobacco?: QUIT 03/27/17; SMOKED 1/3 PPD X 30 YEARS Medications and Allergies Active Scripts Fluconazole (DIFLUCAN) 200 Mg Tablet, 200 MG PO QDAY for 5 Days, #5 TAB Prov:[facility] HATFIELD [facility]-, ONC 05/02/17 Hydrocodone Bit/Acetaminophen (HYDROCODON-ACETAMINOPHEN 5-325) 1 Each Tablet, 1- 2 EACH PO Q4H, #90 TAB Prov:ASPEN HATFIELD [facility], ONC 05/02/17 Dexamethasone 4 Mg Tab (DEXAMETHASONE 4 MG TAB) 4 Mg Tab, 4 MG PO DAILY for 3 Days, #42 TAB take 8mgin the morning on days 2-4 post weekly chemotherapy Prov:ASPEN HATFIELD [facility]-, ONC 04/18/17 Omeprazole Magnesium (PRILOSEC OTC) 20 Mg Tablet.dr, 1 TAB PO QDAY for Nausea, # 30 TAB take on days of dexamethasone, 1-4 weeekly with chemotherapy Prov:ASPEN HATFIELD [facility]-, ONC 04/18/17 Lorazepam (ATIVAN) 0.5 Mg Tablet, 0.5 MG PO Q4-6H Y for nausea for 30 Days, #30 TAB 1 Refill Prov:ASPEN HATFIELD [facility]-, ONC 04/18/17 Ondansetron (ZOFRAN ODT) 8 Mg Tab.rapdis, 8 MG PO Q8H, #30 TAB 2 Refills Prov:LIUASPEN CRESPO Ryan SUPERVISORY TRAINING SPECIALIST-BC, ONC 04/18/17 Reported Medications Ibuprofen (IBUPROFEN) 200 Mg Tablet, 2 TAB PO Q6H, TAB 04/05/17 Allergies: Coded Allergies: Penicillins (Verified Allergy, Intermediate, itching, 03/27/17) Review of System/Physical Exam Review of Systems All Systems Reviewed/Normal: Yes, Except as Noted Constitutional: Positive for Appetite/Weight Change HEENT: Sore Throat, Other (white coating on the tongue) Gastrointestinal: Constipation Hematologic: Positive for Fatigue, Positive for Weakness Skin: Positive for Erythema, Positive for Dry Skin Physical Exam Vital Signs Temperature: 98.0 Pulse: 88 BP Systolic: 135 BP Diastolic: 86 Respiratory Rate: 16 O2 SAT: 93 O2 Delivery: Height (inches) 69.50 Weight lb: 202 Weight oz: 10.0 Weight Kg (Spenser): Pain: 2 ECOG Score: 1 General: Stable, Well Developed, Well Nourished, Not In Acute Distress HEENT: No Trauma, No Conjunctivitis, No Icterus, Mucositis, Oral Thrush, No Sinus Tenderness, Other (posterior pharynx with mild mucositis and white patch on right previous tonsillar bed) Neck: Supple Lungs: Clear to Auscultation Heart: Regular Rate, Regular Rhythm, No Gallops Abdomen: Soft and Nontender, No Hepatosplenomegaly, No Masses, Other Extremities: No Cyanosis, No Clubbing, No Edema Lymphadenopathy: No Cervical Psychiatric: Mood appears normal, Affect appears normal Skin: No Skin Rashes, No Bruising, No Purpura, Mild Erythema (bilateral neck no evidence of moist desquamation), Other Diagnostic Studies Diagnostic Studies Laboratory Laboratory Tests 05/02/17 08:30 Laboratory Tests 04/18/17 08:50: Thyroid Stimulating Hormone (TSH) 1.82 05/02/17 08:30: White Blood Count 7.9, Red Blood Count 4.27, Hemoglobin 14.7, Hematocrit 42.2, Mean Corpuscular Volume 98.9, Mean Corpuscular Hemoglobin 34.5, Mean Corpuscular Hemoglobin Concent 34.9, Red Cell Distribution Width 13.4, Platelet Count 175, Mean Platelet Volume 6.8, Neutrophils (%) (Auto) 79.6, Lymphocytes (% ) (Auto) 12.9, Monocytes (%) (Auto) 5.7, Eosinophils (%) (Auto) 0.5, Basophils ( %) (Auto) 1.3, Nucleated RBC Relative Count (auto) 0.0, Neutrophils # (Auto) 6.3 , Lymphocytes # (Auto) 1.0, Monocytes # (Auto) 0.5, Eosinophils # (Auto) 0.0, Basophils # (Auto) 0.1, Nucleated RBC Absolute Count (auto) 0.00, Sodium Level 137, Potassium Level 4.2, Chloride Level 102, Carbon Dioxide Level 24, Blood Urea Nitrogen 13, Creatinine 0.90, Glomerular Filtration Rate Calc > 60.0, Random Glucose 92, Calcium Level 8.9, Phosphorus Level 3.1, Magnesium Level 2.0 , Total Bilirubin 0.4, Aspartate Amino Transf (AST/SGOT) 19, Alanine Aminotransferase (ALT/SGPT) 35, Alkaline Phosphatase 72, Total Protein 6.9, Albumin 3.7 Assessment and Plan Assessment & Plan 1. 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 Patient started weekly cisplatin on 04/18/2017 and daily radiation therapy Monday through Monday. Patient tolerated cycle 1 of cisplatin without difficulty other than taste bud changes. Cycle 2 he experienced constipation and used MOM with relief. He has continued bilateral pain in the throat and more difficulty with swallowing. He is started on Prilosec and feels that his heartburn has resolved. Because his pain is increased I will start patient on hydrocodone 5/ 325. 1-2 tablets every 6 hours as needed. When patient is unable to swallow oral tablets we will move to liquid Lortab. Education regarding narcotic use to include safety measures, decision making and increased risk of constipation was reviewed with patient today This patient may benefit from a fentanyl patch for a better balance of pain. Patient has a PICC line which will be maintained. . Patient will follow weekly with CBC, CMP, magnesium and phosphorus level. TSH was added with last lab draw and is within normal limits at 1.72. Patient will be followed on a weekly basis and labs monitored. 2. Skin reaction related to radiation therapy. Patient will continue heavy moisturizer cream. Patient will follow with radiation oncologist on a weekly basis throughout treatment and more frequent as needed. I personally spent a total of 20 minutes. Of that 20 minutes was counseling/ coordination of patient's care. See my note above for details. Copies to: JUAN HANKS NANCY J FNP-BC, ONC May 02, 2017 09:09
[2017-05-02] MEDS: NS(*) 0.9% 1000 ML BAG 1,000 ML IV PRN (09:14)
[2017-05-02] MEDS: NS(*) 0.9% 500 ML BAG 500 ML IV PRN (09:14)
[2017-05-02] MEDS: DEXAMETHASONE SOD(*) 10MG/ML 10 MG in NS(*) 0.9% 50 ML BAG 50 ML IVPB PRN (09:15)
[2017-05-02] MEDS: PALONOSETRON 0.25 MG/5 ML VIAL IVP PRN (09:15)
[2017-05-02] MEDS: FOSAPREPITANT DIM 150 MG/5 ML 150 MG in NS(*) 0.9% 250 ML BAG 245 ML IVPB PRN (09:48)
[2017-05-02] MEDS: [UNRECOGNIZED DRUG - OTHER] IV PRN (11:27)
[2017-05-02] MEDS: MAGNESIUM SU IV PRN (11:27)
[2017-05-02] MEDS: KCL IV PRN (11:27)
[2017-05-02 13:44] VITALS: BP 132/78
[2017-05-09 08:26] VITALS: BP 118/82
[2017-05-09] MEDS: NS(*) 0.9% 1000 ML BAG 1,000 ML IV PRN (08:35)
--- NOTE | 2017-05-09 08:48 | ONC Progress Note - NP.Halsey ---
Patient History Date of Service May 09, 2017 Reason For Visit/HPI Patient is seen in the clinic today for cycle 4 of weekly cisplatin. Patient is scheduled to receive 7 weekly doses. He continues with concurrent radiation therapy and is developing a moderate erythema bilateral neck. Patient reports that Monday his pain was increased with swallowing and he started liquid Lortab prescribed by Dr. Adams. He is currently taking it twice daily. He believes that the steroids given on the day of treatment with chemotherapy significantly help his pain. Unfortunately his platelet level is at 93,000 and an I will hold treatment today. He will be hydrated. He continues to have thicker secretions, taste changes, feels down and depressed regarding inability to eat. He has lost 2 pounds in the last week. He does have some increased fatigue today. 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 Patient presented with a left neck mass in January, and it doubled in size within a short period of time. He was seen by his primary care provider, and then he was referred to Dr. Marion in ENT. The patient underwent a CT scan of the neck on February 23. This revealed a partially cystic/necrotic mass in the left neck at the level of the hyoid bone, abutting the posterior surface of the left submandibular gland. The mass displaced the internal jugular vein and the internal/external carotid. The mass itself measured 3.2 x 3.4 x 4.7 cm. There were additional smaller lymph nodes elsewhere in the mid neck. The patient then underwent an excisional biopsy of the left neck mass on March 02. 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 He then went for a CT PET scan on March 21. This revealed evidence of his prior surgical biopsy, as well as warm activity along the surgical approach with a maximum SUV of 3.3. There is moderately high activity in the tonsils extending rostrally to the tongue base, and a tonsillar/peritonsillar malignancy could not be excluded. There was a left pulmonary micronodule, but no evidence of distant glucose-avid metastatic disease. The patient returned to the operating room on March 27 where a bilateral tonsillectomy as well as completion level II, III, and IV neck dissection took place. Biopsies were taken of the left base of tongue, and these were benign. Both the left and right tonsils contained invasive poorly differentiated squamous cell carcinoma. Of note, his tumor is positive for HPV. Patient started treatment on 04/18/2017 with Cisplatin weekly and concurrent radiation therapy 7 weeks. Medical History Family History: FH: diabetes mellitus BROTHER OR SISTER FH: rheumatoid arthritis BROTHER OR SISTER Psychosocial History Social History The patient is a former smoker, he quit with the diagnosis. There is no history of alcohol abuse or illicit drug use. 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 He is with one son. Smoking History: Yes Smoking Status: Former Smoker When Quit Tobacco?: QUIT 03/27/17; SMOKED 1/3 PPD X 30 YEARS Medications and Allergies Active Scripts Fluconazole (DIFLUCAN) 200 Mg Tablet, 200 MG PO QDAY for 5 Days, #5 TAB Prov:ASPEN HATFIELD [facility] [place]-, ONC 05/02/17 Hydrocodone Bit/Acetaminophen (HYDROCODON-ACETAMINOPHEN 5-325) 1 Each Tablet, 1- 2 EACH PO Q4H, #90 TAB Prov:ASPEN HATFIELD [facility], ONC 05/02/17 Dexamethasone 4 Mg Tab (DEXAMETHASONE 4 MG TAB) 4 Mg Tab, 4 MG PO DAILY for 3 Days, #42 TAB take 8mgin the morning on days 2-4 post weekly chemotherapy Prov:ASPEN HATFIELD [facility], ONC 04/18/17 Omeprazole Magnesium (PRILOSEC OTC) 20 Mg Tablet.dr, 1 TAB PO QDAY for Nausea, # 30 TAB take on days of dexamethasone, 1-4 weeekly with chemotherapy Prov:ASPEN HATFIELD [facility], ONC 04/18/17 Lorazepam (ATIVAN) 0.5 Mg Tablet, 0.5 MG PO Q4-6H Y for nausea for 30 Days, #30 TAB 1 Refill Prov:ASPEN HATFIELD [facility], ONC 04/18/17 Ondansetron (ZOFRAN ODT) 8 Mg Tab.rapdis, 8 MG PO Q8H, #30 TAB 2 Refills Prov:ASPEN HATFIELD [facility], ONC 04/18/17 Reported Medications Ibuprofen (IBUPROFEN) 200 Mg Tablet, 2 TAB PO Q6H, TAB 04/05/17 Allergies: Coded Allergies: Penicillins (Verified Allergy, Intermediate, itching, 03/27/17) Review of System/Physical Exam Review of Systems All Systems Reviewed/Normal: Yes, Except as Noted Constitutional: Positive for Appetite/Weight Change, Positive for Recent Infection (recent oral thrush has resolved.) HEENT: Sore Throat, Other (thick oral mucosa secretions) Hematologic: Positive for Fatigue, Positive for Weakness Skin: Positive for Erythema, Positive for Dry Skin Physical Exam Vital Signs Temperature: 96.8 Pulse: 100 BP Systolic: 118 BP Diastolic: 82 Respiratory Rate: 16 O2 SAT: 91 O2 Delivery: Height (inches) 69.50 Weight lb: 202 Weight oz: 10.0 Weight Kg (Spenser): Pain: 4 ECOG Score: 1 General: Stable, Well Developed, Well Nourished, Not In Acute Distress HEENT: No Trauma, No Conjunctivitis, No Mucositis, No Oral Thrush Neck: Supple Lungs: Clear to Auscultation Heart: Regular Rate, Regular Rhythm, No Gallops Abdomen: Soft and Nontender, No Hepatosplenomegaly, No Masses, Other (bowel sounds are active) Extremities: No Cyanosis, No Clubbing, No Edema Lymphadenopathy: No Cervical, No Subclavicular Psychiatric: Mood appears normal, Affect appears normal Skin: No Skin Rashes, No Bruising, No Purpura, Mild Erythema (bilateral neck no evidence of moist desquamation), Moderate Erythema Diagnostic Studies Diagnostic Studies Laboratory Item Value Date Time White Blood Count 6.8 k/uL 05/09/17 0835 Hemoglobin 14.4 g/dL 05/09/17 0835 Hematocrit 41.2 % L 05/09/17 0835 Platelet Count 93 K/uL L 05/09/17 0835 Neutrophils (%) (Auto) 82.9 % H 05/09/17 0835 Lymphocytes (%) (Auto) 10.5 % L 05/09/17 0835 Neutrophils # (Auto) 5.6 K/uL 05/09/17 0835 Lymphocytes # (Auto) 0.7 K/uL L 05/09/17 0835 Sodium Level 134 mmol/L L 05/09/17 0835 Laboratory Tests 04/18/17 08:50: Thyroid Stimulating Hormone (TSH) 1.82 05/02/17 08:30: Red Blood Count 4.27, Mean Corpuscular Volume 98.9, Mean Corpuscular Hemoglobin 34.5, Mean Corpuscular Hemoglobin Concent 34.9, Red Cell Distribution Width 13.4 , Mean Platelet Volume 6.8, Monocytes (%) (Auto) 5.7, Eosinophils (%) (Auto) 0.5 , Basophils (%) (Auto) 1.3, Nucleated RBC Relative Count (auto) 0.0, Monocytes # (Auto) 0.5, Eosinophils # (Auto) 0.0, Basophils # (Auto) 0.1, Nucleated RBC Absolute Count (auto) 0.00 05/09/17 08:35: Assessment and Plan Assessment & Plan 1. 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 Patient started weekly cisplatin on 04/18/2017 and daily radiation therapy Monday through Monday. Patient tolerated cycle 1 of cisplatin without difficulty other than taste bud changes. Cycle 2 he experienced constipation and used MOM with relief. He has continued bilateral pain in the throat and more difficulty with swallowing. He is started on Prilosec and feels that his heartburn has resolved. Because his pain is increased he was started on hydrocodone 5/ 325. 1-2 tablets every 6 hours as needed but more recently has started on liquid Lortab. Patient has a PICC line which will be maintained. . Patient will follow weekly with CBC, CMP, magnesium and phosphorus level. TSH was added with last lab draw and is within normal limits at 1.72. Patient will be followed on a weekly basis and labs monitored. Treatment is held today cycle 4 due to thrombocytopenia with a platelet level of 93,000. I will repeat CBC on or Monday of this week and if platelets have recovered 100,000 or greater patient will complete chemotherapy. If he does receive therapy later this week all of his appointments will been moved to a or Monday for completion of treatment. I will hydrate patient with 1 L normal saline. 2. Skin reaction related to radiation therapy. Patient will continue heavy moisturizer cream. Patient will follow with radiation oncologist on a weekly basis throughout treatment and more frequent as needed. There is no skin breakdown at this time. 3. Pain related to radiation treatment. Patient is currently on Lortab twice daily. We will continue to monitor, if pain increases further we may consider a low-dose fentanyl patch. I personally spent a total of 20 minutes. Of that 20 minutes was counseling/ coordination of patient's care. See my note above for details. Copies to: JUAN HANKS NANCY J FNP-BC, ONC May 09, 2017 08:48
[2017-05-11 08:31] VITALS: BP 116/95
[2017-05-11] MEDS: NS(*) 0.9% 1000 ML BAG 1,000 ML IV PRN (08:33)
[2017-05-11] MEDS: NS(*) 0.9% 500 ML BAG 500 ML IV PRN (10:00)
[2017-05-11] MEDS: DEXAMETHASONE SOD(*) 10MG/ML 10 MG in NS(*) 0.9% 50 ML BAG 50 ML IVPB PRN (10:03)
[2017-05-11] MEDS: PALONOSETRON 0.25 MG/5 ML VIAL IVP PRN (10:05)
[2017-05-11] MEDS: FOSAPREPITANT DIM 150 MG/5 ML 150 MG in NS(*) 0.9% 250 ML BAG 245 ML IVPB PRN (10:30)
[2017-05-11] MEDS: KCL IV PRN (12:20)
[2017-05-11] MEDS: [UNRECOGNIZED DRUG - OTHER] IV PRN (12:20)
[2017-05-11] MEDS: MAGNESIUM SU IV PRN (12:20)
[2017-05-11 15:10] VITALS: BP 115/84
[2017-05-17 12:16] VITALS: BP 106/70
[2017-05-17 13:21] VITALS: BP 108/69
[2017-05-18 08:40] VITALS: BP 120/74
--- NOTE | 2017-05-18 09:24 | ONC Progress Note - NP.Halsey ---
Patient History Date of Service May 18, 2017 Reason For Visit/HPI Patient seen in the clinic today for cycle 5 of weekly cisplatin. Cycle 4 was held at the beginning of last week and then completed at the end of last week with a platelet count greater than 50,000. Platelet count today is 35,000, chemotherapy will be held. Patient is currently receiving daily hydration. Patient is also receiving daily radiation therapy and is approximately jail through his treatment. He has thick mucous secretions but no oral mouth sores. He has taste changes to food products. He is developing erythema, expected skin reaction bilateral neck. He is fatigued. 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 Patient presented with a left neck mass in January, and it doubled in size within a short period of time. He was seen by his primary care provider, and then he was referred to Dr. Marion in ENT. The patient underwent a CT scan of the neck on February 23. This revealed a partially cystic/necrotic mass in the left neck at the level of the hyoid bone, abutting the posterior surface of the left submandibular gland. The mass displaced the internal jugular vein and the internal/external carotid. The mass itself measured 3.2 x 3.4 x 4.7 cm. There were additional smaller lymph nodes elsewhere in the mid neck. The patient then underwent an excisional biopsy of the left neck mass on March 02. 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 He then went for a CT PET scan on March 21. This revealed evidence of his prior surgical biopsy, as well as warm activity along the surgical approach with a maximum SUV of 3.3. There is moderately high activity in the tonsils extending rostrally to the tongue base, and a tonsillar/peritonsillar malignancy could not be excluded. There was a left pulmonary micronodule, but no evidence of distant glucose-avid metastatic disease. The patient returned to the operating room on March 27 where a bilateral tonsillectomy as well as completion level II, III, and IV neck dissection took place. Biopsies were taken of the left base of tongue, and these were benign. Both the left and right tonsils contained invasive poorly differentiated squamous cell carcinoma. Of note, his tumor is positive for HPV. Patient started treatment on 04/18/2017 with Cisplatin weekly and concurrent radiation therapy 7 weeks. Medical History Family History: FH: diabetes mellitus BROTHER OR SISTER FH: rheumatoid arthritis BROTHER OR SISTER Psychosocial History Social History The patient is a former smoker, he quit with the diagnosis. There is no history of alcohol abuse or illicit drug use. 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 He is with one son. Smoking History: Yes Smoking Status: Former Smoker When Quit Tobacco?: QUIT 03/27/17; SMOKED 1/3 PPD X 30 YEARS Medications and Allergies Active Scripts Fluconazole (DIFLUCAN) 200 Mg Tablet, 200 MG PO QDAY for 5 Days, #5 TAB Prov:ASPEN HATFIELD [facility]-, ONC 05/02/17 Hydrocodone Bit/Acetaminophen (HYDROCODON-ACETAMINOPHEN 5-325) 1 Each Tablet, 1- 2 EACH PO Q4H, #90 TAB Prov:ASPEN HATFIELD [facility]-, ONC 05/02/17 Dexamethasone 4 Mg Tab (DEXAMETHASONE 4 MG TAB) 4 Mg Tab, 4 MG PO DAILY for 3 Days, #42 TAB take 8mgin the morning on days 2-4 post weekly chemotherapy Prov:[facility] 04/18/17 Omeprazole Magnesium (PRILOSEC OTC) 20 Mg Tablet.dr, 1 TAB PO QDAY for Nausea, # 30 TAB take on days of dexamethasone, 1-4 weeekly with chemotherapy Prov:[facility] 04/18/17 Lorazepam (ATIVAN) 0.5 Mg Tablet, 0.5 MG PO Q4-6H Y for nausea for 30 Days, #30 TAB 1 Refill Prov:[facility], [facility] 04/18/17 Ondansetron (ZOFRAN ODT) 8 Mg Tab.rapdis, 8 MG PO Q8H, #30 TAB 2 Refills Prov:[facility] 04/18/17 Reported Medications Ibuprofen (IBUPROFEN) 200 Mg Tablet, 2 TAB PO Q6H, TAB 04/05/17 Allergies: Coded Allergies: Penicillins (Verified Allergy, Intermediate, itching, 03/27/17) Review of System/Physical Exam Review of Systems All Systems Reviewed/Normal: Yes, Except as Noted HEENT: Sore Throat Hematologic: Positive for Fatigue Skin: Positive for Erythema, Positive for Dry Skin Physical Exam Vital Signs Temperature: 97.5 Pulse: 108 BP Systolic: 120 BP Diastolic: 74 Respiratory Rate: 16 O2 SAT: 94 O2 Delivery: Height (inches) 69.50 Weight lb: 202 Weight oz: 10.0 Weight Kg (Spenser): Pain: 4 ECOG Score: 1 General: Stable, Well Developed, Well Nourished, Not In Acute Distress HEENT: No Trauma, No Conjunctivitis, No Icterus, No Mucositis, No Oral Thrush Neck: Supple Lungs: Clear to Auscultation Heart: Regular Rate, Regular Rhythm, No Gallops Abdomen: Soft and Nontender, No Hepatosplenomegaly, Other (bowel sounds are active) Extremities: No Cyanosis, No Clubbing, No Edema Lymphadenopathy: No Cervical, No Subclavicular Psychiatric: Mood appears normal, Affect appears normal Skin: No Skin Rashes, No Bruising, No Purpura, Mild Erythema (bilateral neck no evidence of moist desquamation), Moderate Erythema Diagnostic Studies Diagnostic Studies Laboratory Laboratory Tests 05/18/17 08:40 Laboratory Tests 04/18/17 08:50: Thyroid Stimulating Hormone (TSH) 1.82 05/02/17 08:30: Red Blood Count 4.27, Mean Corpuscular Volume 98.9, Mean Corpuscular Hemoglobin 34.5, Mean Corpuscular Hemoglobin Concent 34.9, Red Cell Distribution Width 13.4 , Mean Platelet Volume 6.8, Monocytes (%) (Auto) 5.7, Eosinophils (%) (Auto) 0.5 , Basophils (%) (Auto) 1.3, Nucleated RBC Relative Count (auto) 0.0, Monocytes # (Auto) 0.5, Eosinophils # (Auto) 0.0, Basophils # (Auto) 0.1, Nucleated RBC Absolute Count (auto) 0.00 05/18/17 08:40: White Blood Count 3.0, Hemoglobin 11.7, Hematocrit 33.0, Platelet Count 35, Neutrophils (%) (Auto) 78.3, Lymphocytes (%) (Auto) 14.5, Neutrophils # (Auto) 2.3, Lymphocytes # (Auto) 0.4, Sodium Level 137, Potassium Level 4.0, Chloride Level 103, Carbon Dioxide Level 23, Blood Urea Nitrogen 13, Creatinine 1.00, Glomerular Filtration Rate Calc > 60.0, Random Glucose 102, Calcium Level 8.8, Phosphorus Level 3.3, Magnesium Level 1.8, Total Bilirubin 0.7, Aspartate Amino Transf (AST/SGOT) 17, Alanine Aminotransferase (ALT/SGPT) 40, Alkaline Phosphatase 70, Total Protein 6.8, Albumin 3.8 Assessment and Plan Assessment & Plan 1. 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 Patient started weekly cisplatin on 04/18/2017 and daily radiation therapy Monday through Monday. Patient tolerated cycle 1 of cisplatin without difficulty other than taste bud changes. Cycle 2 he experienced constipation and used MOM with relief. He has continued bilateral pain in the throat and more difficulty with swallowing. He is started on Prilosec and feels that his heartburn has resolved. Because his pain is increased he was started on hydrocodone 5/ 325. 1-2 tablets every 6 hours as needed but more recently has started on liquid Lortab. Patient has a PICC line which will be maintained. . Patient will follow weekly with CBC, CMP, magnesium and phosphorus level. TSH was added with last lab draw and is within normal limits at 1.72. Patient will be followed on a weekly basis and labs monitored. Cycle 4 completed late last week with platelet level of 73 ,[address] Vaughan. Patient had thrombocytopenia with a platelet level of 93,000 earlier in the week and treatment had been held to see if his level would increase. Platelet level is 35,000 today and chemotherapy will be held, radiation will continue.. I will repeat a CBC and a CMP on Monday and transfuse if platelets are less than 20,000. 2. Skin reaction related to radiation therapy. Patient will continue heavy moisturizer cream. Patient will follow with radiation oncologist on a weekly basis throughout treatment and more frequent as needed. There is no skin breakdown at this time. 3. Pain related to radiation treatment. Patient is currently on liquid Lortab twice daily. We will continue to monitor, if pain increases further we may consider a low-dose fentanyl patch. I personally spent a total of 20 minutes. Of that 20 minutes was counseling/ coordination of patient's care. See my note above for details. ASPEN HATFIELD [facility], ONC May 18, 2017 09:24
[2017-05-18] MEDS: NS(*) 0.9% 1000 ML BAG 1,000 ML IV PRN (09:57)
[2017-05-19 09:03] VITALS: BP 111/70
[2017-05-19] MEDS: D5 1/2 NS(*) 1000 ML BAG 1,000 ML IV PRN (09:23)
[2017-05-22 08:37] VITALS: BP 103/68
[2017-05-22] MEDS: D5 1/2 NS(*) 1000 ML BAG 1,000 ML IV PRN (08:40)
[2017-05-22 08:43] LABS: PLATELET COUNT, AUTOMATED 56 K/uL (150-450)
[2017-05-23 11:45] VITALS: BP 105/65
[2017-05-23] MEDS: D5 1/2 NS(*) 1000 ML BAG 1,000 ML IV PRN (12:00)
[2017-05-24] MEDS: D5 1/2 NS(*) 1000 ML BAG 1,000 ML IV PRN (12:17)
[2017-05-24 12:19] VITALS: BP 99/65
[2017-05-25 09:37] VITALS: BP 103/83
[2017-05-25 09:45] LABS: PLATELET COUNT, AUTOMATED 94 K/uL (150-450)
[2017-05-25] MEDS: NS(*) 0.9% 1000 ML BAG 1,000 ML IV PRN (09:46)
[2017-05-25] MEDS: NS(*) 0.9% 500 ML BAG 500 ML IV PRN (10:42)
[2017-05-25] MEDS: DEXAMETHASONE SOD(*) 10MG/ML 10 MG in NS(*) 0.9% 50 ML BAG 50 ML IVPB PRN (11:50)
[2017-05-25] MEDS: PALONOSETRON 0.25 MG/5 ML VIAL IVP PRN (11:50)
[2017-05-25] MEDS: FOSAPREPITANT DIM 150 MG/5 ML 150 MG in NS(*) 0.9% 250 ML BAG 245 ML IVPB PRN (12:14)
[2017-05-25] MEDS: [UNRECOGNIZED DRUG - OTHER] IV PRN (13:58)
[2017-05-25] MEDS: MAGNESIUM SU IV PRN (13:58)
[2017-05-25] MEDS: KCL IV PRN (13:58)
[2017-05-30 12:05] VITALS: BP 104/62
[2017-05-30] MEDS: NS(*) 0.9% 1000 ML BAG 1,000 ML IV PRN (12:05)
--- NOTE | 2017-05-30 16:08 | Medical Nutrition Therapy ---
Nutritional Education Nutrition Education Topic: Other (Head/neck Ca) Learning Readiness: Interested Teaching Methods: Discussion, Handout Response to Teaching: Verbalize understanding Teaching Recipient: Patient Nutrition Counseling: Pt with dx Head/neck Ca undergoing RO tx. Pt states has lost wt, has no apptite but "chokes down" food. Provided handouts and reviewed info on increasing kcal/protien , appetite loss,smoothies. Discussed eating small, frequant meal, trying nutr supplment. Discussed possible enteral nutrition if pt unable to meet kcal needs with oral intake and cont wt loss. Nutrition Monitoring & Eval RD Patient Assessment Time: [address] Assessment Type: RD Education Nutritional Comment: Provided 20 minutes MNT for nutrtion with Ca tx. Copies To Copies to: ONESIMO FARMER MD, BETH May 30, 2017 16:08
[2017-05-31 11:28] VITALS: BP 100/70
[2017-05-31 11:39] LABS: PLATELET COUNT, AUTOMATED 153 K/uL (150-450)
[2017-05-31] MEDS: PALONOSETRON 0.25 MG/5 ML VIAL IVP PRN (12:34)
[2017-05-31] MEDS: DEXAMETHASONE SOD(*) 10MG/ML 10 MG in NS(*) 0.9% 50 ML BAG 50 ML IVPB PRN (12:34)
[2017-05-31] MEDS: FOSAPREPITANT DIM 150 MG/5 ML 150 MG in NS(*) 0.9% 250 ML BAG 245 ML IVPB PRN (13:08)
[2017-05-31] MEDS: [UNRECOGNIZED DRUG - OTHER] IV PRN (15:00)
[2017-05-31] MEDS: KCL IV PRN (15:00)
[2017-05-31] MEDS: MAGNESIUM SU IV PRN (15:00)
[2017-05-31] MEDS: NS(*) 0.9% 1000 ML BAG 1,000 ML IV PRN (15:03)
[2017-05-31 15:53] VITALS: BP 100/70
[2017-05-31 17:05] VITALS: BP 117/84
--- NOTE | 2017-06-01 03:59 | ONCOLOGY FOLLOW UP NOTE ---
EVENT DATE: May 31, 2017 REASON FOR FOLLOWUP Tonsillar squamous cell carcinoma. CHIEF COMPLAINT Fatigue, taste disturbance, difficulty swallowing. INTERIM HISTORY The patient returns to clinic for a followup visit today. he has continued with chemoradiation with weekly cisplatin. He has several days left of radiation therapy, and he is very much looking forward to being done. He reports expected toxicity from chemoradiation to including ongoing fatigue, difficulty swallowing, lack of p.o. intake at home, and general taste disturbance. He feels that he has quite a bit of phlegm in the back of his throat. He reports no shortness of breath or chest pain. He denies fever. He has had some nausea, but this has been fairly well controlled with medications at home. He reports no changes in his bowel habits. He has also had some fluctuating ringing in his ears, but he does not feel that this is getting progressively worse. He does feel at times, however, that he has to turn the TV on a little louder than he used to. REVIEW OF SYSTEMS Otherwise negative, and all systems are reviewed. MEDICATIONS 1. Diflucan. 2. Hydrocodone/acetaminophen. 3. Dexamethasone with chemotherapy. 4. Omeprazole. 5. Lorazepam p.r.n. 6. Zofran p.r.n. ALLERGIES PENICILLIN. PAST MEDICAL HISTORY Reported history of polymyalgia rheumatica which has not been apparent since an initial treatment with prednisone. PAST SURGICAL HISTORY 1. History of lumbar spine surgery, 1989. 2. History of right carpal tunnel surgery, November 04, 2016. 3. Left carpal tunnel surgery, February 16, 2017. SOCIAL HISTORY The patient is a former smoker, as above. There is no history of alcohol abuse or illicit drug use. 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 He is with one son. FAMILY HISTORY There is no known history of malignancy. VITAL SIGNS Temperature is 99, blood pressure 100/70, heart rate is 97, respirations 16, oxygen saturation is 92% on room air, weight is 83 kg. PHYSICAL EXAMINATION GENERAL: Patient is alert and oriented x 3 in no apparent distress sitting in the exam room chair. He appears tired but nontoxic. He is interactive and pleasant. HEENT: Exam reveals anicteric sclerae and some erythema of the oropharynx. NEUROLOGIC: Exam is grossly nonfocal and his gait is normal. SKIN: Exam reveals some erythema over the neck and under the chin. EXTREMITIES: Exam reveals no edema, clubbing or cyanosis. LABORATORY Laboratory studies are reviewed per the [facility] record. ASSESSMENT AND PLAN 1. Squamous cell carcinoma of tonsil. I had a good visit with the patient today. He is very close to being done with his chemoradiation. We spent time today reviewing his treatment history. He has continued on radiation without fail, but unfortunately due to cytopenias, namely thrombocytopenia, we have had to withhold cisplatin previously in his regimen. We reviewed his labs today. His platelet count has recovered to the point where he can receive a dose of cisplatin this week, and we discussed that this will be his last cisplatin infusion. He was very happy to hear this. We spent some extra time today discussing expectations in terms of toxicity, and that it will likely be weeks to months before he notices substantial improvement to the point where his nutrition will normalize. He understands this well. His tinnitus has been fluctuant and not worsening. His kidney function has been stable. He has had no significant peripheral neuropathy. He will continue to receive supplemental IV fluid here until which point he is able to keep up with p.o. hydration and better nutrition at home. I will plan to see him back in clinic in the next month here in my [facility]. ADAMS
[2017-06-02 12:47] VITALS: BP 97/63
[2017-06-02] MEDS: NS(*) 0.9% 1000 ML BAG 1,000 ML IV PRN (12:55)
[2017-06-02 13:52] VITALS: BP 114/74
[2017-06-05] MEDS: NS(*) 0.9% 1000 ML BAG 1,000 ML IV PRN (11:00)
[2017-06-05 11:27] VITALS: BP 100/65
[2017-06-05 11:33] LABS: PLATELET COUNT, AUTOMATED 136 K/uL (150-450)
[2017-06-06 12:23] VITALS: BP 98/64
[2017-06-06] MEDS: NS(*) 0.9% 1000 ML BAG 1,000 ML IV PRN (12:24)
[2017-06-07 12:12] VITALS: BP 108/66
[2017-06-07] MEDS: D5 1/2 NS(*) 1000 ML BAG 1,000 ML IV PRN (12:19)
[2017-06-08] MEDS: D5 1/2 NS(*) 1000 ML BAG 1,000 ML IV PRN (08:16)
[2017-06-08 08:30] LABS: PLATELET COUNT, AUTOMATED 114 K/uL (150-450)
[2017-06-08 08:47] VITALS: BP 98/60
[2017-06-08 09:53] VITALS: BP 101/64
[2017-06-09 10:03] VITALS: BP 90/70
[2017-06-09] MEDS: D5NS(*) 1000 ML BAG 1,000 ML IV PRN (10:12)
--- NOTE | 2017-06-09 12:38 | RADIOLOGY IMAGING REPORT ---
FACILITY: [facility] [place] PATIENT NAME: Sybil Gilliam : 1960 MR: [id number] V: [id number] EXAM DATE: ORDERING PHYSICIAN: ROGER PATTERSON TECHNOLOGIST: [place] [facility] [place]bil Gilli[place] : 1960 Visit/Account:[id number] Date of Sevice: 06/09/2017 Exam type: VENOUS DOPP UPPER LEFT EXTREMI History: Left upper chimney swelling Comparison: None. Findings: There is intraluminal thrombus seen from the left subclavian vein through the left axillary vein left brachial vein left basilic vein. The left ulnar and radial veins were compressible without thrombus IMPRESSION: 1. Extensive DVT throughout the left upper extremity veins as detailed above. These findings were di scussed with the cancer Center by telephone by the technologist at the time the examination Report Dictated By: Quita Ramsey MD at 06/09/2017 12:30 PM Report E-Signed By: Quita Ramsey MD at 06/09/2017 12:33 PM WSN:[email or web address]
[2017-06-10] MEDS: D5 1/2 NS(*) 1000 ML BAG 1,000 ML IV PRN (09:59)
[2017-06-10 10:04] VITALS: BP 103/71
[2017-06-11 09:57] VITALS: BP 102/73
[2017-06-11] MEDS: D5 1/2 NS(*) 1000 ML BAG 1,000 ML IV PRN (10:00)
[2017-06-12] MEDS: D5NS(*) 1000 ML BAG 1,000 ML IV PRN (10:00)
[2017-06-12 10:08] VITALS: BP 99/73
[2017-06-12 10:24] LABS: PLATELET COUNT, AUTOMATED 85 K/uL (150-450)
[2017-06-13 10:12] VITALS: BP 96/60
[2017-06-13 10:27] VITALS: BP 92/52
[2017-06-13 12:31] VITALS: BP 105/53
[2017-06-13 12:48] VITALS: BP 105/67
[2017-06-13 14:35] VITALS: BP 105/63
[2017-06-14] MEDS: D5NS(*) 1000 ML BAG 1,000 ML IV PRN (10:24)
[2017-06-14 10:26] VITALS: BP 93/63
[2017-06-15] MEDS: D5NS(*) 1000 ML BAG 1,000 ML IV PRN (10:04)
[2017-06-15 10:08] VITALS: BP 92/66
[2017-06-16] MEDS: D5 1/2 NS(*) 1000 ML BAG 1,000 ML IV PRN (10:31)
[2017-06-18] MEDS: D5NS(*) 1000 ML BAG 1,000 ML IV PRN (09:49)
[2017-06-18 10:09] VITALS: BP 96/55
[2017-06-18 10:52] VITALS: BP 106/66
[2017-06-19] MEDS: D5 1/2 NS(*) 1000 ML BAG 1,000 ML IV PRN (10:50)
[2017-06-19 11:30] VITALS: BP 100/73
[2017-06-19 11:55] LABS: PLATELET COUNT, AUTOMATED 38 K/uL (150-450)
[2017-06-19 12:26] VITALS: BP 132/87
[2017-06-22] MEDS: D5 1/2 NS(*) 1000 ML BAG 1,000 ML IV PRN (10:30)
[2017-06-26 10:26] LABS: PLATELET COUNT, AUTOMATED 135 K/uL (150-450)
[2017-06-26 16:25] VITALS: BP 110/87
[2017-06-28 10:35] VITALS: BP 89/58
[2017-06-28] MEDS: D5 1/2 NS(*) 1000 ML BAG 1,000 ML IV PRN (10:37)
[2017-06-28 11:38] VITALS: BP 96/60
[2017-06-30] MEDS: D5 1/2 NS(*) 1000 ML BAG 1,000 ML IV PRN (10:01)
[2017-06-30 10:23] VITALS: BP 101/68
[2017-07-03 10:13] VITALS: BP 100/66
[2017-07-03] MEDS: D5 1/2 NS(*) 1000 ML BAG 1,000 ML IV PRN (10:15)
[~2017-07-07] VITALS: Ht 176.5 cm; Wt 83.0 kg
[~2017-07-07 09:59] MED LIST changes: +CISPLATIN IVPB ONE; +INFLUENZA VIRUS VAC 0.5 ML SYR IM ONLY ONE; +NS 0.9% IVPB ONE; -NS(*) 0.9% 1000 ML BAG 1,000 ML IV PRN; -NS(*) 0.9% 500 ML BAG 500 ML IV PRN; +ONDA-2 PO; +PNEUMOC 13-VAL CONJ-DIP CRM/PF 0.5 ML SYR IM ONLY ONE; -WATER FOR INJ,STERILE 20 ML IVP PRN; +WATER STERILE 10 ML VIAL IVP PRN
[2017-07-07 10:06] VITALS: BP 105/72
[2017-07-07] MEDS: D5 1/2 NS(*) 1000 ML BAG 1,000 ML IV PRN (10:06)
[2017-07-07 11:19] VITALS: BP 106/78
== END 2017-07-10 ==
LOC: SPU 09:59
PROVIDERS: ATTEND Internal Medicine Medical Oncology
DX: Z51.11 Encounter for antineoplastic chemotherapy (principal); C09.9 Malignant neoplasm of tonsil, unspecified; Z87.891 Personal history of nicotine dependence; Z23 Encounter for immunization; Z79.899 Other long term (current) drug therapy; R53.83 Other fatigue; M79.1 Myalgia; R13.10 Dysphagia, unspecified; R42 Dizziness and giddiness; I82.622 Acute embolism and thrombosis of deep veins of left upper extremity
CPT/HCPCS: 36592; 83735; 84100; 84443; 85025; 85027; 86644; 86850; 86900; 86901; 86920; 90471; 90472; 90670; 90674; 93971; 96360; 96361; 96366; 96367; 96375; 96413; 96417; 97802; 99202; C1751; J1100; J1453; J1642; J2469; J3475; J3480; J7030; J7040; J7042; J7050; J9060; P9016; 36430; 36569; 76937; 82040; 82247; 82310; 82374; 82435; 82565; 82947; 84075; 84132; 84155; 84295; 84450; 84460; 84520

== ENCOUNTER 2017-07-07 10:30 | Outpatient (RCR) | payer OTHER ==
[2017-03-28 08:52] VITALS: BMI 29.0
--- NOTE | 2017-04-21 16:11 | PT INITIAL EVALUATION ---
MEDICAL DIAGNOSIS: Squamous Cell Carcinoma TREATMENT DIAGNOSIS: Squamous Cell Carcinoma DATE OF ONSET: 04/18/17 SUBJECTIVE: Chance is a 56 year-old male presenting to physical therapy and oncology rehabilitation education for diagnosis of tonsillar squamous cell carcinoma. Pt has had recent surgical intervention including tonsillectomy as well as L cervical lymph node resection. Pt is starting further oncology treatment today consisting of medical oncology intervention of Cisplatin and radiation therapy bilaterally. Pt reports neck tightness and mild pain rated at a 2/10 as well as a sore throat since the surgery. Pt , MOLD DUMPER and social services director are present for education session. 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 Cervical ROM: flexion: full without pain, ext: moderate restrictions, L SB: severe restrictions, R SB: moderate restrictions with pain and stretch, L rotation: moderate restrictions, R rotation: moderate restrictions with stretch and pain. Sensation: Pt reports occasional numbness and tingling in the L hand secondary to a history of carpal tunnel surgery on 2016 Special Tests: Modified Head and Neck QOL Instrument: "Slightly" in all categories excluding taste Mobility: ECOG Performance Status: Grade 0 Other Objective Findings: FACT-G: PWB: , SWB: , EWB: , FWB: , Total: 92/108 ASSESSMENT: Pt shows signs and symptoms consistent with cervical dysfunction secondary to recent surgical intervention and oncological intervention. Physical therapy is indicated to improve pt function as impaired by the above listed deficits, as well as decrease side-effects with ongoing oncological intervention. In addition it is my recommendation that this pt would also benefit from referral to MANUFACTURING ENGINEER SUPERVISOR and audiology services to monitor and improve ongoing decline in swallowing and hearing function with radiation and Cisplatin treatment. Short Term Goals In 3 weeks pt will increase cervical ROM to min-full for improved functional mobility for ADL's. In 2 MO pt will increase cervical ROM to full without pain for increased functional mobility with ADL's. In 2 MO pt will maintain FACT-G score of >90 for maintenance of well-being with ongoing oncological care. In 2 MO pt will maintain ECOG performance status of <2 for increased outcomes with ongoing oncological care and functional mobility. Patient's Goals Minimize side effects from treatment, increase neck mobility. PLAN: Patient to be seen for Manual Therapy/STM/MET Strengthening/condition Ice/Heat Range of Motion Spinal Stabilization Ultrasound Stretching Iontophoresis Neuromuscular Re-ed Closed Chain Program Electrical Stim Posture/Body mechanics Gait Trg/Balance Trg Biofeedback Home Exercise Program Mech./Manual Traction Therapeutic Activities 1x/Week for 6 MO If you have any questions, comments, or concerns about this report or plan, please contact me at . Thank you, Agustina Ellis, PT, DPT, CLT MTDD
--- NOTE | 2017-05-01 12:43 | SWALLOW EVALUATION ---
SPEECH THERAPY ASSESSMENT Physician: Avelino Adams MD Clinician: Luz Muse MS, [facility]-SUBSTATION OPERATOR, LALITHA Osorio Type of Assessment: Dysphagia Evaluation Patient: Chance Gilliam : 1960, 56yrs Evaluation Date: 04-27-2017 BACKGROUND The patient is a 56 year old male who receives treatment at [facility] for squamous cell carcinoma metastatic to the head and neck. Patient was referred for a swallow evaluation secondary to his reported difficulty swallowing from his bilateral tonsillectomy and radiation treatments. PREVIOUS LEVEL OF FUNCTION: Primary Medical Diagnosis: Squamous cell carcinoma of head and neck Prior Hospitalization: See chart for details. Medical Complications/Past Medical History: See chart for details LOC / Participation: alert and cooperative Follows instructions: yes Orientation: oriented to person, place, time, situation Functional Communication Deficits impact swallow function/safety, or response to therapy: No VOICE Vocal Deficits: No Changes to vocal quality: Yes DYSPHAGIA ASSESSMENT SUMMARY Xerostomia: Yes Supplemental Oxygen Use: No COPD Dx: No GERD: Pt reports acid reflux since starting radiation treatment. Pt reports that he takes Prilosec every morning which relieves his symptoms. Oral Structure and Function: Within functional limits for speech and swallow. Pain with Swallow: Currently denies. EAT 10: Total Score 4. Results indicate a current swallowing problem (3 or above) 1. My swallowing problem has caused me to lose weight. 0 2. My swallowing problem interferes with my ability to go out for meals. 0 3. Swallowing liquids takes extra effort. 0 4. Swallowing solids takes extra effort. 1 5. Swallowing pills takes extra effort. 1 6.Swallowing is painful 1 7. The pleasure of eating is affected by my swallowing. 1 8. When I swallow, food sticks in my throat. 0 9. I cough when I eat. 1 10. Swallowing is stressful. 0 Trials were not completed during this assessment. The pt reports no difficulty with swallowing at this time and no s/s of penetration or aspiration SUMMARY Speech Therapy Need ST will provide education and treatment to align with the swallowing changes that occur with radiation therapy. Educated the patient about the following: -Normal swallowing -Aspiration -Effects of radiation on swallow function -Swallow precautions -How to manage mucous and Xerostomia Verbal and written information provided to the pt. The pt reported understanding and had no questions during the session. Provided verbal, written , and modeled practice with lingual and jaw stretches. Pt was advised to complete these stretches multiples times a day for completion of a home program. RECOMMENDATIONS 1. Diet Modification: Food: Regular diet as tolerated. Liquids: Regular thin liquids 2. Pills: with water as tolerated. 3. Continue use of aloe vera juice to alleviate symptoms of xerostomia. Written and verbal education provided at time of eval regarding xerostomia and oral health. 4. Speech Therapy: The patient would benefit from ST 1wk2, q2wk5 to address swallowing function, swallowing changes, and promote swallowing safety as the patient proceeds with radiation treatment. PLAN OF CARE Short Term Goals 1. Pt will recall 5-6 swallow safety precautions by the end of the 7th session. 2. Pt will learn and demonstrate 4-5 exercises to promote maximal muscle functions for swallowing and voice production. 3. Pt will complete a home program for motor function of his tongue and jaw as reported by the pt. Rehabilitation Prognosis: Good given patient motivation. Thank you for this referral. Please call [phone] Luz Muse M.S., CCC-SUBSTATION OPERATOR, Frances Guzmán, [facility] Physician Signature Date [facility]
--- NOTE | 2017-05-19 17:39 | PT PLAN OF CARE ---
Physician: ALMITA Hernandez Patient is being seen: 1x/Week Therapist: Agustina Ellis, PT, DPT, CLT Medical Diagnosis: Squamous Cell Carcinoma Treatment Diagnosis: Squamous Cell Carcinoma Date of Onset: 04/18/17 Date of Initial Evaluation: 04/18/17 Date patient was last seen: 05/18/17 Number of treatments: 5 Number of cancellations/No shows: 0 INTERVENTIONS: Manual Therapy/STM/MET Strengthening/condition Ice/Heat Range of Motion Spinal Stabilization Ultrasound Stretching Iontophoresis Neuromuscular Re-ed Closed Chain Program Electrical Stim Posture/Body mechanics Gait Trg/Balance Trg Biofeedback Home Exercise Program Mech./Manual Traction Therapeutic Activities GOALS: In 3 weeks pt will increase cervical ROM to min-full for improved functional mobility for ADL's. MET in all except extension In 2 MO pt will increase cervical ROM to full without pain for increased functional mobility with ADL's. In 2 MO pt will maintain FACT-G score of >90 for maintenance of well-being with ongoing oncological care. In 2 MO pt will maintain ECOG performance status of <2 for increased outcomes with ongoing oncological care and functional mobility. PATIENT'S GOAL: Minimize side effects from treatment, increase neck mobility. Status of Patient's Goals: In Progress Patient Compliance: Good Prognosis: Good Reasons for continuing therapy: Pt shows significant side-effects from both chemotherapy as well as radiation treatment with inflamed tissue on the L lateral aspect of the neck as well as decreased appetite, loss of taste and generalized fatigue. Despite complications pt shows good maintenance of cervical ROM and mobility with improved incision mobility. Pt to continue with PT treatment to continue to minimize physical limitations secondary to treatment. Posture: Slight forward head posture with rounded shoulders ROM: Shoulder ROM: Flexion: minimally restricted B, Abd: minimally restricted B , ER: full B, but with tightness sensation on the L, IR: Full B. Cervical ROM: flexion: full without pain, ext: moderate restrictions, L SB: severe restrictions, R SB: moderate restrictions with pain and stretch, L rotation: moderate restrictions, R rotation: moderate restrictions with stretch and pain. Sensation: Pt reports occasional numbness and tingling in the L hand secondary to a history of carpal tunnel surgery on 2016 Special Tests: Modified Head and Neck QOL Instrument: "Slightly" in all categories excluding taste Mobility: ECOG Performance Status: Grade 0 Other Objective Findings: FACT-G (Initial Evaluation): PWB: , SWB: , EWB: , FWB: , Total: 92/108 FACT-G (05/18/17): PWB: , SWB: , EWB: , FWB: , Total: 68 /108 If you have any questions or concerns, please feel free to contact me at . Thank you, Agustina Ellis, PT, DPT, CLT MTDD
--- NOTE | 2017-06-09 17:21 | PT PLAN OF CARE ---
Physician: Lucio Marie MD Patient is being seen: 3x/Week Therapist: Agustina Ellis, PT, DPT, CLT Medical Diagnosis: Squamous Cell Carcinoma Treatment Diagnosis: Squamous Cell Carcinoma Date of Onset: 04/18/17 Date of Initial Evaluation: 04/18/17 Date patient was last seen: 06/09/17 Number of treatments: 6 Number of cancellations/No shows: 1 INTERVENTIONS: Manual Therapy/STM/MET Strengthening/condition Ice/Heat Range of Motion Spinal Stabilization Ultrasound Stretching Iontophoresis Neuromuscular Re-ed Closed Chain Program Electrical Stim Posture/Body mechanics Gait Trg/Balance Trg Biofeedback Home Exercise Program Mech./Manual Traction Therapeutic Activities GOALS: In 3 weeks pt will increase cervical ROM to min-full for improved functional mobility for ADL's. MET in all except extension In 2 MO pt will increase cervical ROM to full without pain for increased functional mobility with ADL's. In Progress In 2 MO pt will maintain FACT-G score of >90 for maintenance of well-being with ongoing oncological care. In Progress In 2 MO pt will maintain ECOG performance status of 2 or less for increased outcomes with ongoing oncological care and functional mobility. MET PATIENT'S GOAL: Minimize side effects from treatment, increase neck mobility. Status of Patient's Goals: In Progress Patient Compliance: Good Prognosis: Good Reasons for continuing therapy: Pt shows minor loss of cervical and L shoulder mobility following completion of radiation and chemotherapy treatment. Additionally pt shows increased fatigue and and decreased mobility with ADL's. Further PT is indicated at increased frequency to initiate return of function with the completion of oncology intervention. Pt demonstrated L arm edema with hydration infusion as well as recently developed venous dilation along the L axilla. Nurse notified of condition to be evaluated by MD for DVT or problems with cubital IV line. Posture: Slight forward head posture with rounded shoulders ROM: Shoulder ROM: Flexion: minimally restricted R, moderate restrictions on L with pain, Abd: minimally restricted B with pain on L, ER: full B, IR: L1 level on the R, L5 level on the L with pain. Cervical ROM: flexion: minimal restrictions without pain, ext: moderate restrictions with tightness, L SB: minimal restrictions with pain, R SB: moderate restrictions with pain and stretch, L rotation: without restrictions, R rotation: minimal restrictions with stretch. Sensation: Pt reports occasional numbness and tingling in the L hand secondary to a history of carpal tunnel surgery on 2016 Special Tests: Modified Head and Neck QOL Instrument: "Slightly" in all categories excluding taste Mobility: ECOG Performance Status: Grade 2 Other Objective Findings: FACT-G (Initial Evaluation): PWB: , SWB: , EWB: , FWB: , Total: 92/108 FACT-G (05/18/17): PWB: 14, SWB: , EWB: , FWB: , Total: 68 /108 FACT-G (06/09/17): PWB: /, SWB: , EWB: , FWB: 11/07, Total: 65 /108 If you have any questions or concerns, please feel free to contact me at [phone]. Thank you, Agustina Ellis, PT, DPT, CLT ZARIAD
[~2017-07-07 10:30] MED LIST changes: -ALTEPLASE RECOMB 2 MG VIAL IVP PRN; -CISPLATIN IVPB ONE; -D5 1/2 NS(*) 1000 ML BAG 1,000 ML IV ONE; -DEXTROSE 5%(*) 100 ML BAG 100 ML IVPB PRN; -INFLUENZA VIRUS VAC 0.5 ML SYR IM ONLY ONE; -NS 0.9% IVPB ONE; -NS(*) 0.9% 100 ML BAG 100 ML IVPB PRN; -PNEUMOC 13-VAL CONJ-DIP CRM/PF 0.5 ML SYR IM ONLY ONE; -WATER STERILE 10 ML VIAL IVP PRN
== END 2017-07-17 ==
LOC: PT 10:30
PROVIDERS: ATTEND Internal Medicine Hematology
DX: C79.89 Secondary malignant neoplasm of other specified sites (principal)
CPT/HCPCS: 97162

== ENCOUNTER 2017-07-25 09:58 | Outpatient (RCR) | payer OTHER ==
[2017-03-28 08:52] VITALS: BMI 29.0
[2017-07-18 10:28] LABS: PLATELET COUNT, AUTOMATED 226 K/uL (150-450)
[2017-07-18 10:39] VITALS: BP 103/76
[2017-07-26] MEDS ORDERED: FLUC200T52 PO (11:18)
== END 2017-07-31 13:30 | disposition home or self-care (01) ==
LOC: RAON 09:58
PROVIDERS: ATTEND Radiology Radiation Oncology
DX: C09.8 Malignant neoplasm of overlapping sites of tonsil (principal)
CPT/HCPCS: 36415; 82040; 82247; 82310; 82374; 82435; 82565; 82947; 84075; 84132; 84155; 84295; 84443; 84450; 84460; 84520; 85025; 99213

== ENCOUNTER 2017-10-10 14:59 | Outpatient (RCR) | payer OTHER ==
[2017-03-28 08:52] VITALS: BMI 29.0
[2017-07-18 10:39] VITALS: BP 103/76
--- NOTE | 2017-09-22 17:31 | Oncology Progress Note ---
History of Present Illness Evaluation Evaluation Date: Sep 12, 2017 Evaluation Time: 11:30 Accompanied by Accompanied by: self Chief Complaint Chief Complaint Discomfort swallowing foods Oncology History Oncology History Patient initially presented with a left neck mass in January, and it doubled in size within a short period of time. He was seen by his primary care provider , and then he was referred to Dr. Marion in ENT. The patient underwent a CT scan of the neck on February 23. This revealed a partially cystic/necrotic mass in the left neck at the level of the hyoid bone, abutting the posterior surface of the left submandibular gland. The mass displaced the internal jugular vein and the internal/external carotid. The mass itself measured 3.2 x 3.4 x 4.7 cm. There were additional smaller lymph nodes elsewhere in the mid neck. The patient then underwent an excisional biopsy of the left neck mass on March 02. 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 He then went for a CT PET scan on March 21. This revealed evidence of his prior surgical biopsy, as well as warm activity along the surgical approach with a maximum SUV of 3.3. There is moderately high activity in the tonsils extending rostrally to the tongue base, and a tonsillar/peritonsillar malignancy could not be excluded. There was a left pulmonary micronodule, but no evidence of distant glucose-avid metastatic disease. T he patient returned to the operating room on March 27 where a bilateral tonsillectomy as well as completion level II, III, and IV neck dissection took place. Biopsies were taken of the left base of tongue, and these were benign. Both the left and right tonsils contained invasive poorly differentiated squamous cell carcinoma. Of note, his tumor is positive for HPV. Patient started treatment on 04/18/2017 with Cisplatin weekly and concurrent radiation therapy 7 weeks. Treatment Treatment Patient started treatment on 04/18/2017 with Cisplatin weekly and concurrent radiation therapy 7 weeks HPI HPI Mr. Tawana Lopes is a 57-year-old man who has bilateral tonsil squamous cell carcinoma. s/p Cisplatin regimen x 7 weeks, and radiation therapy treatment. Patient presents to the cancer center today complaining of discomfort swallowing. He reports being in his usual state of health. Denies nausea vomiting diarrhea, no shortness of breath, no cardiac type chest pain, no changes in bowel or bladder pattern. treated by Dr. 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 initial Patient presented with a left neck mass in January, and it doubled in size within a short period of time. He was seen by his primary care provider, and then he was referred to Dr. Marion in ENT. The patient underwent a CT scan of the neck on February 23. This revealed a partially cystic/necrotic mass in the left neck at the level of the hyoid bone, abutting the posterior surface of the left submandibular gland. The mass displaced the internal jugular vein and the internal/external carotid. The mass itself measured 3.2 x 3.4 x 4.7 cm PMH Patient History: FH: diabetes mellitus BROTHER OR SISTER FH: rheumatoid arthritis BROTHER OR SISTER Social/Occupational History Social History: Social History This is a 57 Yr old White male, he is M and has [] Children Hx Smoking: Yes Smoking Status: Former Smoker Allergies & Medications Allergies: Coded Allergies: Penicillins (Verified Allergy, Intermediate, itching, 03/27/17) Home Meds Reported Medications Ibuprofen (IBUPROFEN) 200 Mg Tablet, 2 TAB PO Q6H Y for PAIN, TAB 09/06/17 Review of Systems Constitution: Denies Appetite/Weight Change, Denies Fever/Chills/Sweating, Denies Recent Infection, Denies Other HEENT: No EARS: Tinnitus, No NOSE: Nasal Discharge, No THROAT: Sore Throat, No EYES: Dipolpia, No EARS: Hearing Problems, No NOSE: Epistaxis, No THROAT: Mouth Ulcers, No EYES: Vision Change, OTHER (Discomfort swallowing.) Respiratory: Cough, No Expectoration, No Hemoptysis, No Shortness of Breath, No OTHER Cardiovascular: No Chest Pain, No Orthopnea, No Edema, No Palpitations, No OTHER Gastrointestinal: No Nausea, No Vomitting, No Diarrehea, Constipation, No Heart Burn, No Swallowing Difficulties, No Abdominal Pain, No Other Gentiourinary: No Hematuria, No Dysuria, No Nocturia, No Other Musculoskeletal: Muscle Pain Hematological: No Bleeding, Weakness, No Enlarged Lyph Nodes, No Bruising, Fatigue, No Other Skin: Erythema, Dry Skin Psychiatric: No Anxiety, No Depression, No Other Vital Signs Vital Signs Temperature: 97.6 Pulse: 97 BP Systolic: 103 BP Diastolic: 76 Respiratory Rate: 16 O2 SAT: 94 O2 Delivery: Height (feet) Height (inches) 69.50 Weight lb: 166 Weight oz: 10.0 Weight Kg (Spenser): Pain: 0 ECOG 1 Physical Exam General: Looks Stable, Well Developed HEENT: HEAD:Atraumatic, No EYES: Conjuctivitis, No EYES: Icterus, No MOUTH: Mucocitis, No MOUTH: Oral Thrush, No SINUS: Tenderness to Palpation, No Other Neck: Supple, Other (pain swallowing) Lungs: Clear to Auscultation, Percussion Bilaterally Heart: Regular Rate and Rhythm Abdomen: Soft and Nontender Extremities: No Cyanosis, No Clubbing, No Edema, No Other Lymphatics: No Peripheral Lymphadenopathy, No Other Psychiatric: Mood appears normal, Affect appears normal Skin: No Skin Rashes, No Bruising, No Purpura, No Moist Desquamation, No Dry Desquamation, No Errythema, No Mild Errythema, No Moderate Errythema, No Severe Errythema, No Induration, No Other Breast: No No Masses, No No Nipple Discharge, No No Skin Changes, No Other Assessment and Plan Assessment and Plan Mr. Tawana Lopes is a 57-year-old man who has bilateral tonsil squamous cell carcinoma. s/p Cisplatin regimen x 7 weeks, and radiation therapy treatment. Patient presents to the cancer center today complaining of discomfort swallowing. He reports being in his usual state of health. Denies nausea vomiting diarrhea, no shortness of breath, no cardiac type chest pain, no changes in bowel or bladder pattern. 1. Bilateral tonsil squamous cell carcinoma. s/p cisplatin x7 cycles. 2. Esophagitis. reports discomfort pain with swallowing, no mucositis present. Patient to take lortab. PLAN #1 Lortab 7.5 mg elixir by mouth every 3-4 hours as needed please dispense 1 pint; #2 patient to use Biotene artificial saliva every one hour as needed; #3 patient to use aloe vera juice sweets and before and after each meal; #4 patient to use sugarless chewing gum to stimulate saliva production; #5 patient may use Tylenol for sore throat maximum four tabs daily OTC #6 Acyclovir 400 mg PO BID #60 pills 6 prophylaxis #7 patient to follow up with Dr. Vaughan. or Dr. Martin the week 10/10/2017 - october 18 2017. after visit with Dr. Marion. ENT. #9. patient to contact cancer center with any issues or concerns. #10. Constipation. continue taking, colace, senna, miralax PRN and back off if more than 3BMs per day. -Education, patient instructed to go to ER immediately and or call Clinic if any Shortness of Breath, Temp >/=100.4, fevers, chills, cardiac type chest pain , bleeding, excessive bruising, headaches, blurry vision, dizziness, abdominal pain, difficulty swallowing, and pain unrelieved by medication. TIME SPENT: 30minutes 25 > minutes includes but not limited to discussion, counselling and co-ordination~ of care. Discussion with other health care providers, record review, review of lab work, diagnostic tests. Plan discussed extensively with patient. All the questions answered today. Thank you for the opportunity to be involved in the care of Mr. Tawana Lopes. Billing Level: Return visit 4 TOBY FRANCOIS, ONC Sep 12, 2017 12:30
[2017-10-10] MEDS ORDERED: IOPAMIDOL 76% 75 ML INFUS BTL 75 ML ONE (15:43)
--- NOTE | 2017-10-10 16:36 | RADIOLOGY IMAGING REPORT ---
[place] [facility] [place] NAME: Moses Gilliam : 1960 MR: [id number] V: [id number] EXAM DATE: ORDERING PHYSICIAN: CODY GILLESPIE TECHNOLOGIST: Location: [facility] Patient: Moses Gilliam : 1960 Visit/Account:[id number] Date of Sevice: 10/10/2017 EXAMINATION: CT neck with IV contrast HISTORY: Squamous cell carcinoma of the neck. TECHNIQUE: CT was obtained through the neck following IV contrast administration. Sagittal and co airam reformatted images were generated. 75 mL of IV Isovue-370 injected. One of the following dose optimization techniques was utilized in the performance of this exam: autom ated exposure control; adjustment of the mA and/or kV according to patient size; or use of iterative reconstruction technique. Specific details can be referenced in the facility's radiology CT exam ope rational policy. COMPARISON: 02/23/2017 FINDINGS: Parotid/submandibular and thyroid glands: The posterior aspect of the left submandibular gland is mil dly dense, a new finding, axial image 37 likely treatment related. The additional previously seen non enlarged dense left level 2 lymph node has been resected. Pharyngeal and retropharyngeal soft tissues: Normal. Oral cavity and echo technologist space soft tissues: Normal. Larynx/glottis and airway: New treatment-related left greater right mild thickening of the aryepiglot tic folds. Lymph nodes: Resection of the previously seen necrotic left level 2 lymph node. No enlarged or abnorm al appearing neck lymph nodes. Vessels: Unchanged bilateral proximal internal carotid artery atherosclerotic plaque. Visualized orbits / brain: No significant finding. Upper chest: Normal. Bones/sinuses/mastoid air cells: Multilevel degenerative cervical foraminal narrowing. No metastatic disease identified. IMPRESSION: 1. Interval resection of the previously seen necrotic left level 2 malignant lymph node. Additional interval resection of the previously seen mildly dense nonenlarged left level 2 lymph node . 2. No enlarged or suspicious lymph nodes. 3. Posttreatment related findings. 4. No neck mass or evidence of recurrent disease. Report Dictated By: Go Brandon MD at 10/10/2017 4:16 PM Report E-Signed By: Go Brandon MD at 10/10/2017 4:32 PM WSN:[id number]
== END 2017-10-12 14:39 | disposition home or self-care (01) ==
LOC: SPU 14:59
PROVIDERS: ATTEND Radiology Radiation Oncology
DX: C09.8 Malignant neoplasm of overlapping sites of tonsil (principal); C77.0 Secondary and unspecified malignant neoplasm of lymph nodes of head, face and neck; C79.89 Secondary malignant neoplasm of other specified sites; C80.1 Malignant (primary) neoplasm, unspecified
CPT/HCPCS: 70491; Q9967

== ENCOUNTER 2017-10-11 10:55 | Outpatient (RCR) | payer OTHER ==
[2017-03-28 08:52] VITALS: Ht 177.8 cm; Wt 69.9 kg
[2017-07-19 10:01] VITALS: BP 112/74
--- NOTE | 2017-07-19 17:37 | ONCOLOGY FOLLOW UP NOTE ---
EVENT DATE: July 19, 2017 REASON FOR FOLLOWUP Bilateral tonsillar squamous cell carcinoma. CHIEF COMPLAINT Fatigue, taste disturbance. HISTORY OF PRESENT ILLNESS Chance returns to clinic for a follow-up visit today. Since our last visit, he has noted some general improvement in his overall well-being. His biggest frustration at this point continues to be lack of taste for food. He has been maintaining his weight and hydration. He reports no significant pain. He denies nausea. He has had no changes in bowel or bladder habits. He reports no difficulty swallowing, but he does have a dry mouth. He does have some very mild swelling of the left arm, but this has improved gradually over time. His PICC line has been removed. He has stopped taking his anticoagulant. REVIEW OF SYSTEMS Otherwise negative, and all systems were reviewed. CURRENT MEDICATIONS 1. Zofran p.r.n. 2. Hydrocodone p.r.n. 3. Dexamethasone. 4. Prilosec. 5. Ativan. 6. Ibuprofen. ALLERGIES PENICILLIN. PAST MEDICAL HISTORY Reported history of polymyalgia rheumatica which has not been apparent since an initial treatment with prednisone. PAST SURGICAL HISTORY 1. History of lumbar spine surgery, 1989. 2. History of right carpal tunnel surgery, November 04, 2016. 3. Left carpal tunnel surgery, February 16, 2017. SOCIAL HISTORY The patient is a former smoker, as above. There is no history of alcohol abuse or illicit drug use. 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 He is with one son. FAMILY HISTORY There is no known history of malignancy. VITAL SIGNS Temperature is 98.1, blood pressure 112/74, heart rate is 60, respirations 16, oxygen saturation is 95% on room air, Weight is 76 kg. PHYSICAL EXAMINATION GENERAL: Patient is alert and oriented times three in no apparent distress sitting in the exam room chair. HEENT: Exam reveals anicteric sclerae. NEUROLOGIC: Exam is grossly nonfocal and his gait is normal. SKIN: Exam reveals no concerning rash or lesion. EXTREMITIES: Exam reveals some slight edema of the left upper extremity without tenderness or erythema to palpation. LABORATORY Laboratory studies are reviewed per the [facility] record. IMAGING None today. ASSESSMENT AND PLAN 1. Squamous cell carcinoma of bilateral tonsils. I had a good visit with Chance today. He is slowly recovering from his chemoradiation. He continues to have taste disturbance, and as discussed, this is likely to have very gradual improvement over time. We discussed strategy for ongoing surveillance. He is due to have a follow-up CT PET scan about 12-16 weeks after finishing radiation therapy. As discussed, I would want Dr. Adams to have control over the timing of his followup. I would tentatively plan to see the patient back after his CT PET scan is complete. 2. PICC-associated upper extremity deep venous thrombosis. Patient is now off anticoagulation. He has no signs or symptoms to suggest worsened or recurrent DVT. As discussed, I think it would be worthwhile for him to consider taking a baby aspirin once a day to reduce his risk of recurrent thrombosis. Hopefully now that his PICC line is out and his cancer has been treated he will have no further problems with thrombosis. ZARIAD
--- NOTE | 2017-08-17 14:34 | Medical Nutrition Therapy ---
Nutrition Anthropometrics Height (Inches): 70 (pt stated ht) Height (Calculated Centimeters: 176.5300 Weight (Pounds): 166 (wt today on [facility] Scale) BMI: 23 Hx Weight Loss: Yes (pt stated his wt prior to Cancer Treatment was ~202 lbs ) Hx Weight Gain: Yes (pt states he has gain >5lbs in the past couple weeks) Nutrition/Food History dry mouth, loss of taste, decreased intake, wt loss Improving (taste is improving, less salty taste ) Breakfast: cereals with whole milk, eggs, yogurt Lunch: home - snacks, running errands- fast food - burger, fish sandwich Dinner: last night - pork chops w/stuffing and green beans and jett Snacks: nuts, yogurt Nutritional Diagnosis Nutritional Risk Acuity 2: Head/Neck/GI Cancer Nutritional Risk Acuity 3: Eat/Chew Problem, Weight Loss Past Medical History: 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 Nutritional Acuity: 2-Moderate Nutrition Diagnosis: Inadequate Food Intake Nutrition Etiology: Physiological Causes Nutrition Problem/Etiology/Sym: dry mouth, loss of taste resulting in decreased intake and weight loss Energy Requirement: 2500 Protein Requirement: 80 Fluid Requirement: 2100 Nutritional Education Nutrition Education Topic: Other (dry mouth and loss of taste information ) Learning Readiness: Interested Teaching Methods: Discussion, Handout Response to Teaching: Return demonstration, Verbalize understanding Teaching Recipient: Patient Nutrition Counseling: reviewed current intake and provided additional information regarding managing dry mouth, loss of taste, increase calories and protein, oral care prior to eating Nutrition Monitoring & Eval Nutritional Goals Comment: pt states his desired wt 180 lbs increase calories and protein by making each bite or beverage nutritional dense RD Patient Assessment Time: [address] Assessment Type: RD Education Patient Nutrition Acuity: 2-Moderate Nutritional Comment: provided nutrition education for post cancer treatment issues for dry mouth, loss of taste and decreased intake Copies To Copies to: YARA NICKERSON JR, MD, PAULA RDN, VAMSHI Aug 17, 2017 14:32
[2017-08-29 12:15] VITALS: BP 110/70
[2017-08-29 12:24] LABS: PLATELET COUNT, AUTOMATED 117 K/uL (150-450)
--- NOTE | 2017-08-30 08:24 | ONCOLOGY FOLLOW UP NOTE ---
EVENT DATE: August 28, 2017 REASON FOR FOLLOWUP Bilateral tonsillar squamous cell carcinoma. CHIEF COMPLAINT Taste disturbance. HISTORY OF PRESENT ILLNESS Chance returns to the clinic for a followup visit today. Since our last visit, he has had some modest improvement in his lingering toxicity from prior chemoradiation. He also thinks he has come down with a cold. He has had some sinus congestion and a sore throat but he has noticed no mouth sores. He has noticed no new lumps or bumps in the neck. He has had no difficulty swallowing. He does feel that his symptoms are getting better. He reports having recent laryngoscopic evaluation and that this was unremarkable. He has had no recurrent swelling in his left arm and no erythema or pain. He has been fishing quite a bit. REVIEW OF SYSTEMS Otherwise negative and all systems reviewed. CURRENT MEDICATIONS 1. Zofran p.r.n. 2. Ibuprofen p.r.n. ALLERGIES PENICILLIN. PAST MEDICAL HISTORY Reported history of polymyalgia rheumatica which has not been apparent since an initial treatment with prednisone. PAST SURGICAL HISTORY 1. History of lumbar spine surgery, 1989. 2. History of right carpal tunnel surgery, November 04, 2016. 3. Left carpal tunnel surgery, February 16, 2017. SOCIAL HISTORY The patient is a former smoker, as above. There is no history of alcohol abuse or illicit drug use. 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 He is with one son. FAMILY HISTORY There is no known history of malignancy. VITAL SIGNS Temperature is 98.1, blood pressure 110/70, heart rate is 85, respirations 16, oxygen saturation is 94% on room air, Weight is 74.3 kg. PHYSICAL EXAMINATION GENERAL: Patient is alert and oriented x3, in no apparent distress, sitting in the exam room chair. He is interactive and quite pleasant. He appears healthy. HEENT: Anicteric sclerae. There is no posterior pharyngeal erythema or patches. NECK: No palpable lymphadenopathy. NEUROLOGIC: Grossly nonfocal and his gait is normal. SKIN: No concerning rash or lesion. EXTREMITIES: No edema, clubbing or cyanosis, specifically of the left arm. LABORATORY Laboratory studies are reviewed per the [facility] record. His TSH is normal. ASSESSMENT AND PLAN 1. Bilateral tonsil squamous cell carcinoma. I had a good visit with Chance today. Symptomatically, he seems to be doing a bit better. He does have some lingering dry mouth and it does seem that he has come down with an upper respiratory infection. His symptoms are improving and I have asked him to call me in the next seven to ten days if this does not continue to be the case. He agrees to do so. We spent time discussing his ongoing surveillance. He reports having recent laryngoscopic evaluation. He does have plans to continue with this followup. He also has a CT/PET scan scheduled for the end of September. I will plan to see him back after the scan is performed and we will review imaging at that time. 2. PICC-associated upper extremity deep venous thrombosis. Chance has no signs or symptoms to suggest recurrent thrombosis today. ADAMS
[2017-10-10 15:13] LABS: PLATELET COUNT, AUTOMATED 172 K/uL (150-450)
[~2017-10-11] VITALS: Ht 177.8 cm; Wt 69.9 kg
[2017-10-11 11:00] VITALS: BP 111/65
--- NOTE | 2017-10-11 21:32 | ONCOLOGY FOLLOW UP NOTE ---
EVENT DATE: October 11, 2017 REASON FOR FOLLOWUP Bilateral tonsillar squamous cell carcinoma. CHIEF COMPLAINT Taste disturbance, fatigue. INTERIM HISTORY Chance returns to clinic for a followup visit today. He is accompanied by his . He reports that he has had some ongoing frustration with lack of rapid improvement in his symptoms. He continues to have taste disturbance, and his dietary limitations are fairly substantial. He has lost some weight, but he is maintaining his hydration. He does report he had noticed that he had gained a pound or two three to four weeks ago. More recently, however, he installed carpet in his home which required a lot of physical exertion. He had lost weight again after that. He reports no significant pain. He does have some ongoing mild tinnitus, especially in the right ear. He does get tired fairly quickly with exertion, but he has been trying to keep busy. He has noticed no new lumps or bumps in his neck, and he denies mouth sores. REVIEW OF SYSTEMS Otherwise negative, and all systems are reviewed. CURRENT MEDICATIONS 1. Ibuprofen p.r.n. 2. Hydrocodone/acetaminophen p.r.n. ALLERGIES PENICILLIN. PAST MEDICAL HISTORY Reported history of polymyalgia rheumatica which has not been apparent since an initial treatment with prednisone. PAST SURGICAL HISTORY 1. History of lumbar spine surgery, 1989. 2. History of right carpal tunnel surgery, November 04, 2016. 3. Left carpal tunnel surgery, February 16, 2017. SOCIAL HISTORY The patient is a former smoker, as above. There is no history of alcohol abuse or illicit drug use. 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 He is with one son. FAMILY HISTORY There is no known history of malignancy. VITAL SIGNS Temperature is 98.0, blood pressure 111/65, heart rate is 100, respirations 16, oxygen saturation is 92% on room air, Weight is 69.9 kg. PHYSICAL EXAMINATION GENERAL: Patient is alert and oriented times three, in no apparent distress, sitting in the exam room chair. He is thin, but interactive and quite pleasant. He appears hydrated. HEENT: Anicteric sclerae. Mucous membranes are somewhat dry. NEUROLOGIC: Grossly nonfocal, and his gait is normal. SKIN: No concerning rash or lesion. EXTREMITIES: No edema, clubbing, or cyanosis. LABORATORY Laboratory studies are reviewed per the [facility] record. IMAGING CT scan of the neck performed on October 10, 2017, reveals interval resection of the previously seen necrotic left level 2 malignant lymph node and additional interval resection of previously seen mildly dense, not enlarged left level 2 lymph node. There are no enlarged or suspicious lymph nodes. There are some [id number] findings, but no neck mass or evidence of recurrent disease. ASSESSMENT AND PLAN Bilateral tonsillar squamous cell carcinoma. Chance is holding his own clinically, but he is understandably frustrated with his very slow recovery after chemoradiation. His residual symptoms include dry mouth, taste disturbance, and some tinnitus in the right ear. He has also been fairly fatigued. He had started to make some progress in gaining weight, but then had a big project in installing carpet during which he lost the weight again. He is confident that things are slowly improving, but he just wishes change would happen faster. We discussed the merits of having him undergo another audiology exam. This will be ordered today. He will continue to have ENT followup. He did have a very recent followup laryngoscopy that showed no evidence of cancer recurrence. His CT scan findings are also encouraging. I have asked him to follow up with me in the next one to two months to assess his progress over time. ADAMS
== END 2017-10-12 14:38 | disposition home or self-care (01) ==
LOC: ONC 10:55
PROVIDERS: ATTEND Internal Medicine Medical Oncology
DX: C09.9 Malignant neoplasm of tonsil, unspecified (principal); Z92.21 Personal history of antineoplastic chemotherapy; Z92.3 Personal history of irradiation; Z86.718 Personal history of other venous thrombosis and embolism; R53.83 Other fatigue; R43.9 Unspecified disturbances of smell and taste; Z87.891 Personal history of nicotine dependence; H93.11 Tinnitus, right ear
CPT/HCPCS: 36415; 82040; 82247; 82310; 82374; 82435; 82565; 82947; 84075; 84132; 84155; 84295; 84443; 84450; 84460; 84520; 85025; 99212

== ENCOUNTER → 2017-10-24 | Outpatient (CLI) | payer OTHER ==
[2017-03-28 08:52] VITALS: BMI 29.0
== END ==
LOC: AUD 16:24
PROVIDERS: ATTEND Internal Medicine Hematology
DX: C76.0 Malignant neoplasm of head, face and neck (principal); H93.11 Tinnitus, right ear
CPT/HCPCS: 92552

== ENCOUNTER 2017-10-31 10:59 | Outpatient (RCR) | payer OTHER ==
[2017-03-28 08:52] VITALS: BMI 29.0
== END 2018-01-08 14:33 | disposition home or self-care (01) ==
LOC: RAON 10:59
PROVIDERS: ATTEND Radiology Radiation Oncology
DX: C79.89 Secondary malignant neoplasm of other specified sites (principal); C09.8 Malignant neoplasm of overlapping sites of tonsil
CPT/HCPCS: 99213

== ENCOUNTER 2017-12-01 09:45 | Outpatient (RCR) | payer OTHER ==
[2017-03-28 08:52] VITALS: BMI 29.0
--- NOTE | 2017-10-25 12:56 | PT INITIAL EVALUATION ---
MEDICAL DIAGNOSIS: Head and Neck Cancer TREATMENT DIAGNOSIS: Head and Neck Cancer DATE OF ONSET: 04/18/17 SUBJECTIVE: Chance is a 56 year-old male presenting to physical therapy following oncological intervention for tonsillar squamous cell carcinoma. Pt initially had surgical intervention including tonsillectomy as well as L cervical lymph node resection. Further oncology treatment consisted of medical oncology intervention of Cisplatin and radiation therapy bilaterally. Pt received physical therapy intervention throughout treatment to maintain and improve ROM, but discontinued after oncological discharge secondary to pt preference. After seeing little improvement of neck mobility with independent exercise pt wishes to continue PT treatment. Current PIP's include decreased mobility with driving and stiffness. Pt reports no pain in the neck, but tightness on the L>R sides of the neck and the front. REHAB PROBLEM LIST: Increased Pain Decreased ROM Decreased Function Decreased ADL's Decreased Mobility PREVIOUS MEDICAL HISTORY: See EMR OBJECTIVE: Pt presents with tight skin on the L side of the neck>R with minimal redness present Posture: Forward head posture ROM: Cervical ROM: flexion: minimally restricted with posterior and L sided pain, ext: moderate restriction with pn in posterior neck, L SB: 20 with posterior and L pain, R SB: 25 with posterior pain, L rot: 44, R rot: 44 with L side tightness. UE ROM: full Strength: UE MMT: 5/5 B with increased tension on L side of neck Sensation: Pt reports moderate numbness lingering on the L side of the neck. Other Objective Findings: Neck Pain Disability Index: 6/50 ASSESSMENT: "Chance" presents with signs and symptoms consistent with cervical mobility impairment secondary to surgical and radiation oncology interventions. PT is indicated for this pt to address the above listed deficits to improve PT function and mobility with ADL's. Short Term Goals In 6 weeks pt will increase cervical ROM to minimal restrictions in all ranges for improved function with ADL's. In 6 weeks pt will improve Neck Pain and Disability Index score to < 2/50 for improved function with ADL's. Patient's Goals Improve neck motion PLAN: Patient to be seen for Manual Therapy/STM/MET Strengthening/condition Ice/Heat Range of Motion Spinal Stabilization Stretching Neuromuscular Re-ed Electrical Stim Posture/Body mechanics Home Exercise Program Mech./Manual Traction Therapeutic Activities 2-3x/Week for 6 Weeks If you have any questions, comments, or concerns about this report or plan, please contact me at . Thank you, Agustina Ellis, PT, DPT, CLT MTDD
== END 2018-01-22 ==
LOC: PT 09:45
PROVIDERS: ATTEND Internal Medicine Hematology
DX: R22.1 Localized swelling, mass and lump, neck (principal); C09.9 Malignant neoplasm of tonsil, unspecified; Z92.21 Personal history of antineoplastic chemotherapy; Z92.3 Personal history of irradiation; Z90.89 Acquired absence of other organs
CPT/HCPCS: 97161

== ENCOUNTER 2018-01-10 10:30 | Outpatient (RCR) | payer OTHER ==
[2017-03-28 08:52] VITALS: BMI 29.0
[2017-11-14 10:12] VITALS: BP 118/74
[2017-11-14 10:22] LABS: PLATELET COUNT, AUTOMATED 176 K/uL (150-450)
[2017-12-12 09:59] VITALS: BP 112/57
[2017-12-12 10:18] LABS: PLATELET COUNT, AUTOMATED 195 K/uL (150-450)
[2018-01-10 10:59] LABS: PLATELET COUNT, AUTOMATED 198 K/uL (150-450)
[2018-01-10 11:00] VITALS: BP 116/70
--- NOTE | 2018-01-10 23:22 | ONCOLOGY FOLLOW UP NOTE ---
EVENT DATE: January 10, 2018 REASON FOR FOLLOWUP Bilateral tonsillar squamous cell carcinoma. CHIEF COMPLAINT Taste disturbance. INTERM HISTORY Chance returns to clinic for a followup visit today. He states that since our last visit, he has noticed some modest improvement in his overall quality of life. His fatigue has improved, and he is very happy about this. He is now basically able to do whatever he wants from a physical activity standpoint. He reports ongoing dry mouth and lack of taste for food. Food is not tasting like much of anything, when previously it just tasted like salt. He reports no mouth sores and no lumps or bumps in the neck. He denies fever. He has had no shortness of breath or chest pain. He denies productive cough. REVIEW OF SYSTEMS Otherwise negative, and all systems were reviewed. CURRENT MEDICATIONS Ibuprofen p.r.n. ALLERGIES PENICILLIN. PAST MEDICAL HISTORY Reported history of polymyalgia rheumatica which has not been apparent since an initial treatment with prednisone. PAST SURGICAL HISTORY 1. History of lumbar spine surgery, 1989. 2. History of right carpal tunnel surgery, November 04, 2016. 3. Left carpal tunnel surgery, February 16, 2017. SOCIAL HISTORY The patient is a former smoker, as above. There is no history of alcohol abuse or illicit drug use. 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 He is with one son. FAMILY HISTORY There is no known history of malignancy. VITAL SIGNS Temperature is 97.6, blood pressure 116/71, heart rate is 71, respirations 16, oxygen saturation is 97% on room air. PHYSICAL EXAMINATION GENERAL: Patient is alert and oriented times three, in no apparent distress, sitting in the exam room chair. He appears healthy. He is interactive and pleasant. HEENT: Anicteric sclerae. NECK: Slight hyperpigmentation of skin due to prior radiation. NEUROLOGIC: Grossly nonfocal, and his gait is normal. EXTREMITIES: No edema, clubbing, or cyanosis. There is no erythema or tenderness to palpation. SKIN: No concerning rash or lesion. LABORATORY STUDIES Laboratory studies are reviewed per the [facility] record. IMAGING None today. ASSESSMENT AND PLAN Bilateral tonsillar squamous cell carcinoma. Chance continues to do pretty well with some improvement from our prior visit. His fatigue has improved, and he is starting to notice some change in his taste for food. He has no concerning signs or symptoms to suggest recurrence of his head and neck cancer. We discussed today that he would like to have re-imaging in February with CT scan as opposed to waiting until after the first of the year. This is certainly reasonable. I will order the CT today. I have asked that he follow up with either myself or Dr. Adams after the CT is performed. Further surveillance will depend on results of imaging and preference moving forward. He continues to have followup regularly in ENT. ADAMS
== END 2018-02-07 11:10 | disposition home or self-care (01) ==
LOC: SPU 10:30
PROVIDERS: ATTEND Internal Medicine Medical Oncology
DX: C09.8 Malignant neoplasm of overlapping sites of tonsil (principal)
CPT/HCPCS: 36415; 82040; 82247; 82310; 82374; 82435; 82565; 82947; 84075; 84132; 84155; 84295; 84450; 84460; 84520; 85025; 99212

== ENCOUNTER 2018-03-09 09:00 | Outpatient (RCR) | payer OTHER ==
[2017-03-28 08:52] VITALS: Wt 69.7 kg
[2018-03-07 08:32] VITALS: BP 108/53
[2018-03-09 09:12] VITALS: BP 115/75
[2018-03-09 09:42] LABS: PLATELET COUNT, AUTOMATED 223 K/uL (150-450)
--- NOTE | 2018-03-09 11:24 | ONCOLOGY FOLLOW UP NOTE ---
EVENT DATE: March 09, 2018 CHIEF COMPLAINT Followup for bilateral tonsillar squamous cell carcinoma. HISTORY OF PRESENT ILLNESS Patient is a 57-year-old male who is seen today in followup. 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 Today, he states he is generally feeling well. His fatigue has improved significantly. Weight is stable (although 50 pounds less than pre-treatment weight). He still has no taste, which has been frustrating. Spicy foods burn his mouth but previously noted salty taste has resolved. Otherwise, he feels well and denies any other new complaints. ONCOLOGY HISTORY Patient presented with a large lymph node on his left neck. He underwent excision on March 02, 2017. He then underwent bilateral tonsillectomy on March 27, 2017, which showed a poorly differentiated squamous cell carcinoma, HPV positive (stage I, T1 N2a M0 on the left and T1 N0 M0 on the right ). He underwent concurrent chemoradiation with weekly cisplatin from April 18, 2017 through June 08, 2017. MEDICAL HISTORY 1. Bilateral tonsillar squamous cell carcinoma, March 2017. 2. Polymyalgia rheumatica, not apparent since initial treatment with prednisone. SURGICAL HISTORY 1. Lumbar spine surgery, 1989. 2. Right carpal tunnel syndrome, October 2016. 3. Left carpal tunnel syndrome, February 2018. 4. Bilateral tonsillectomy, March 27, 2017. FAMILY HISTORY Negative for malignancy. SOCIAL HISTORY Patient is . They have a 24-year-old son. 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 He is a former smoker. No history of alcohol abuse or illicit drug use. REVIEW OF SYSTEMS A 12-point review of systems is performed and is negative except as stated above. PHYSICAL EXAMINATION VITAL SIGNS: Weight 69.7 kg, BP 115/75, P 76, R 16, temperature 98.0, O2 sat 97%. GENERAL: Patient is a well-developed, well-nourished male in no acute distress. HEAD: Normocephalic, atraumatic. EYES: Sclerae anicteric. MOUTH: Moist mucous membranes. No lesions visible. NECK: Supple. No palpable adenopathy. LUNGS: Clear bilaterally. CARDIOVASCULAR: Heart rate regular, 76 per minute without murmur, S3 or S4. ABDOMEN: Soft, nontender with active bowel sounds. No organomegaly. EXTREMITIES: No edema. NEURO: Nonfocal. LABORATORY STUDIES CBC, CMP and TSH are pending. ASSESSMENT AND PLAN The patient is a 57-year-old male diagnosed with bilateral squamous cell carcinoma in February 2018. Completed concurrent chemoradiation with weekly cisplatin from April 18, 2017 through June 08, 2017. 1. Bilateral tonsillar squamous cell carcinoma. No signs of symptoms of disease recurrence. He underwent CT of the neck on March 07, 2018, which showed no evidence of recurrent disease. 2. Fatigue, much improved over previous. TSH is pending today. 3. Taste, still struggling with no taste. He previously had very salty taste but this has resolved. He is hopeful this will return. His weight has been stable, although 50 pounds less than on presentation. 4. Follow up with Dr. Marion monthly through May 2018. He then will be transitioned to every two to three months. 5. Follow up with Dr. Vaughan in three months for continued care. CBC and CMP will be done before that visit. [facility]
== END 2018-06-05 ==
LOC: ONC 09:00
PROVIDERS: ATTEND Internal Medicine Medical Oncology
DX: C09.8 Malignant neoplasm of overlapping sites of tonsil (principal); R53.83 Other fatigue; Z87.891 Personal history of nicotine dependence; Z92.3 Personal history of irradiation; Z92.21 Personal history of antineoplastic chemotherapy
CPT/HCPCS: 36415; 82040; 82247; 82310; 82374; 82435; 82565; 82947; 84075; 84132; 84155; 84295; 84443; 84450; 84460; 84520; 85025; 99212

== ENCOUNTER 2018-06-21 09:08 | Outpatient (RCR) | payer OTHER ==
[2017-03-28 08:52] VITALS: BMI 29.0
[2018-06-21 09:25] LABS: PLATELET COUNT, AUTOMATED 218 K/uL (150-450)
--- NOTE | 2018-06-22 02:34 | ONCOLOGY FOLLOW UP NOTE ---
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 HISTORY OF PRESENT ILLNESS Chance is a 57-year-old male who is seen today in followup. 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 He tells me today that he is feeling quite well. His fatigue has significantly improved. He continues working [employer] and actually has a couple of jobs. 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 He reports working at least 67 hours or so last week. His weight has been stable, and in fact, this is up almost 10 pounds today. He is eating and drinking well, though foods still do not really have any taste. This has been frustrating, but he tells me is managing with this. 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 He missed his followup in March with Dr. Marion, his ENT. He believes that something happened with the schedule and he simply became busy with work. He is aware that we want him to follow up with his ENT. He just completed his one-year anniversary on 06/08/18. He completed therapy on 06/08/17. ONCOLOGY HISTORY Patient presented with a large lymph node on his left neck. He underwent excision on March 02, 2017. He then underwent bilateral tonsillectomy on March 27, 2017, which showed a poorly differentiated squamous cell carcinoma, HPV positive (stage I, T1 N2a M0 on the left and T1 N0 M0 on the right ). He underwent concurrent chemoradiation with weekly cisplatin from April 18, 2017, through June 08, 2017. PAST MEDICAL HISTORY 1. Bilateral tonsillar squamous cell carcinoma, March 2017. 2. Polymyalgia rheumatica, not apparent since initial treatment with prednisone. PAST SURGICAL HISTORY 1. Lumbar spine surgery, 1989. 2. Right carpal tunnel syndrome, October 2016. 3. Left carpal tunnel syndrome, February 2018. 4. Bilateral tonsillectomy, March 27, 2017. FAMILY HISTORY Negative for malignancy. SOCIAL HISTORY Patient is . They have a 24-year-old son. 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 He is a former smoker. No history of alcohol abuse or illicit drug use. ALLERGIES PENICILLINS. MEDICATIONS Ibuprofen 200 mg tablets p.o. every six hours p.r.n. pain. REVIEW OF SYSTEMS CONSTITUTIONAL: Patient denies any recent fevers, chills, or night sweats. No recent infections. HEENT: No suspicious oral ulcerations. No difficulty swallowing. He continues to have significant xerostomia and tells me he is well versed on available [id number] solutions, swish and spit, and lozenges. NECK: No neck pain. CARDIOVASCULAR: No chest pain. No syncope or presyncope. LUNGS: He denies any shortness of breath. No cough, sputum production, or hemoptysis. GI: No abdominal pain, nausea, vomiting, constipation, diarrhea, bright red blood per rectum, or melena. Appetite is good. PSYCH: He denies any severe anxiety, severe depression, suicidal or homicidal ideation. ENDOCRINE: Energy level is good. Significantly improved compared to four to six months ago. MUSCULOSKELETAL: No focal areas of pain. The remainder of a 12-point review of systems is performed today and is otherwise negative. LABORATORY CBC today: WBC 4.5, ANC 3.0, hemoglobin 15.1, hematocrit 44.5%, platelets 218,000. Red blood cell indices do reveal ongoing macrocytic hyperchromia, though this has improved. MCV is 102.9, with MCH 34.8. MPV 6.8. CMP today: Completely normal. TSH today normal at 3.61. IMPRESSION AND PLAN The patient is a 57-year-old male diagnosed with bilateral squamous cell carcinoma in February 2018. Completed concurrent chemoradiation with weekly cisplatin from April 18, 2017, through June 08, 2017. He missed his followup ENT appointment with Dr. Marion back in March. He is doing quite well and feels great. 1. Bilateral tonsillar squamous cell carcinoma. No signs of symptoms of disease recurrence. He underwent CT of the neck on March 07, 2018, which showed no evidence of recurrent disease. 2. ENT followup: He sees Dr. Marion. He missed his followup in March of this year. Our plan was for him to follow up with Dr. Marion monthly through May 2018, his anniversary, and then we planned for him to transition with followups every two or three months. He simply got busy and there were some scheduling changes, so I will have our office contact Dr. Marion so that they can call Chance to schedule. He is aware that laryngoscope will likely be performed in office, and hopefully, if still stable, he can then move to quarterly appointments with ENT. 3. Fatigue: Resolved. TSH ordered today to recheck this, as well as his macrocytic hyperchromia, without anemia, is normal. 4. Dysgeusia: Still struggles with taste, though he is managing well with this and is eating well. His weight is up. Hopefully, this will slowly start to resolve. He is aware that this does take some time. Of note, he did present with 50-pound weight loss on presentation. 5. I have asked Chance to return to clinic in three months for ongoing followup, repeat labs with CBC and CMP prior to that visit, and followup with his medical oncologist, Dr. Hobson. He may certainly follow up sooner in the interim should any needs arise. [facility]
== END 2018-09-10 15:25 | disposition home or self-care (01) ==
LOC: SPU 09:08
PROVIDERS: ATTEND Internal Medicine Medical Oncology
DX: C09.8 Malignant neoplasm of overlapping sites of tonsil (principal); R53.83 Other fatigue; Z87.891 Personal history of nicotine dependence; Z92.21 Personal history of antineoplastic chemotherapy
CPT/HCPCS: 36415; 82040; 82247; 82310; 82374; 82435; 82565; 82947; 84075; 84132; 84155; 84295; 84443; 84450; 84460; 84520; 85025

== ENCOUNTER 2018-09-26 12:17 | Outpatient (RCR) | payer OTHER ==
[2017-03-28 08:52] VITALS: BMI 29.0
== END 2018-09-27 14:15 | disposition home or self-care (01) ==
LOC: SPU 12:17
PROVIDERS: ATTEND Internal Medicine Medical Oncology
DX: C09.8 Malignant neoplasm of overlapping sites of tonsil (principal)